=== PATIENT | female | born 1945 | race Caucasian/White ===

== ENCOUNTER → 2016-06-24 | Outpatient (CLI) | payer OTHER ==
[~2016-06-24] VITALS: Ht 154.9 cm; Wt 82.9 kg
[~2016-06-24] MED LIST: 5-HTP100 MG PO; ACETYL L-CARNI500 MG PO; ASPIR 8181 MG PO; ASPIRIN325 PO; CAL MAG ZINC +1 EAC1 PO; CHROMIUM400 MCG PO; GREEN TEA1 EACH PO; HYDROCODONE-AP1 EAC6 PO; LEVOTHYROXIN0.075 MG PO; LEVOTHYROXINE0.05 MG PO; MULTI VITAMIN1 EACH PO; NEURONTIN 300300 M1 PO; NEURONTIN600 MG PO; NEXIUM40 MG PO; NITROGLYCERIN0.4 MG SUBLING; OMEGA-3100 MG PO; OMEPRAZOLE 20 M20 M1 PO; OXYCODON-ACETA1 EAC1 PO; OXYCODONE-APAP1 EAC4 PO; PAMELOR25 MG PO; POT CITRATE-CI1 EACH PO; PRILOSEC20 MG PO; TRAMADOL 50 MG50 MG PO; ZYRTEC10 MG PO; [UNRECOGNIZED DRUG - MIXTURE]; [UNRECOGNIZED DRUG - OTHER]; [UNRECOGNIZED DRUG - OTHER] PO
--- NOTE | ~2016-06-24 | HPC ---
[address] [address] PAIN MANAGEMENT CONSULTATION Name: OLEKSANDR HERNANDEZ Room #: REG [facility].#: [id number] Admission: 06/24/16 Attend Phys: Umberto Lopez DO Discharge: Date of : 46 Report #: [id number] THIS REPORT FOR: //name// CC: Shae Lopez DATE OF SERVICE: 06/24/2016 REFERRING PHYSICIAN: Shae Ramsey MD. CHIEF COMPLAINT: Low back pain, left lower extremity pain and paresthesias. HISTORY OF PRESENT ILLNESS: As you know, the patient is a 71-year-old female, who returns today in followup visit, requesting to undergo an epidural injection under fluoroscopic guidance. She is placing pain score today at 4/10, states her pain reoccurred in middle of this last week and has progressively worsened. She indicates pain is exacerbated with walking, standing, lying down, and improves with medications and seated positions and repositioning. She is placing pain score at 4/10, states her pain is aching in sensation. She reports a 95% improvement in overall pain with previous epidural injection. She returns today in followup visit, hoping to undergo the next in the series to build on the success of previous intervention. ALLERGIES: PENICILLIN. CURRENT MEDICATIONS: Gabapentin, omeprazole, aspirin, levothyroxine, nitroglycerin p.r.n., cetirizine, potassium, multivitamin, calcium carbonate, chromium picolinate, omega 3 fish oil. SOCIAL HISTORY: The patient denies tobacco, alcohol, IV or illicit drug use. She is unaccompanied today. IMAGING: No new imaging available. PHYSICAL EXAMINATION: VITAL SIGNS: Blood pressure 129/75, pulse 83, respiratory rate 16, unlabored. The patient is 96% on room air. Height 5 feet 1 inch tall, weight 182.8 pounds, BMI calculated at 34.6. GENERAL: Well developed, well nourished, and well hydrated. Exogenously obese 71-year-old female appearing her stated age, placing current pain score at 4/10. HEENT: Normocephalic and atraumatic. Pupils are equal, round, and reactive to light. Extraocular muscles are intact. Speech is fluent. EXTREMITIES: Show no clubbing, no cyanosis, no edema. MUSCULOSKELETAL: Seated straight leg raising remains negative. Supine straight leg raising positive on the left. Pain is elicited with standing from a seated [address] [address] PAIN MANAGEMENT CONSULTATION Name: OLEKSANDR HERNANDEZ [facility] [id number] Admission: 06/24/16 Attend Phys: Umberto Lopez DO Discharge: Date of : 46 Report #: [id number] position and ambulating across the floor. Gait is slightly antalgic favoring the left lower extremity over right. ASSESSMENT: 1. Symptomatic lumbar radiculopathy. 2. Spinal stenosis of the lumbar spine. 3. Displacement of the lumbar intervertebral disk with radiculopathy. 4. Lumbosacral spondylosis with radiculopathy. 5. Lumbar degeneration. 6. Chronic intractable pain. PLAN: 1. The patient returns today in followup visit, requesting to undergo an epidural injection under fluoroscopic guidance. She has noted good analgesic benefit with previous injection providing 95% improvement in overall pain, lasting for nearly 2 months. We have consented the patient to undergo the procedure. Advised the risks and benefits, states she understood and wished to proceed. 2. No medication changes were made at today's visit. The patient will continue current medical therapy as previously prescribed. 3. We will see the patient back in followup visit on an as needed basis for possible repeat epidural injection and medication management if necessary. PROCEDURE NOTE: DESCRIPTION OF PROCEDURE: Lumbar epidural steroid injection under fluoroscopic guidance. This is the second procedure of the second series that the patient is undergoing. After obtaining written consent, the patient was taken back to the fluoroscopy suite, placed in a prone position with pillow under the abdomen to decrease lumbar lordosis. The skin overlying the lumbosacral area was then prepped and draped in aseptic fashion. The lumbar vertebral interspace was then identified by AP fluoroscopy. The skin and subcutaneous tissue overlying the target site of injection was anesthetized with 3 mL 1% lidocaine. A 20-guage 3-1/2 inch Tuohy needle was then advanced under fluoroscopic guidance towards the epidural space using a left paramedian approach. The epidural space was identified using loss of resistance to air technique. After negative aspiration for heme or cerebrospinal fluid, a total of 0.6 mL of Omnipaque was injected. A lumbar epidurogram was confirmed using both AP and lateral fluoroscopy. After negative aspiration for heme or cerebrospinal fluid, 5 mL of solution containing 2 mL 40 mg per mL, 80 mg total triamcinolone and 3 mL of lidocaine 1% was injected in increments. Contrast spread was noted in posterior [facility] [address] [place] [address] PAIN MANAGEMENT CONSULTATION Name: OLEKSANDR HERNANDEZ Room #: REG [facility]#: [id number] Admission: 06/24/16 Attend Phys: Umberto Lopez DO Discharge: Date of : 46 Report #: [id number] epidural space. The needle was then retracted approximately half way and needle tract flushed with 1 mL of 1% lidocaine. Needle was then removed. There were no apparent sensory or motor deficits in the lower extremity following the procedure. A sterile bandage was placed over the injection site. The heart rate, pulse, oximetry and blood pressure were continuously monitored after the procedure. There were no apparent complications. The patient tolerated the procedure well and was carefully escorted to the recovery room in stable condition. There were no apparent complications. After meeting discharge criteria, the patient was then discharged home. By: [id number] Umberto Lopez DO /nt
[2016-06-24 09:28] VITALS: BP 129/75
== END | disposition home or self-care (01) ==
LOC: PAIN 07:04
DX: M51.16 Intervertebral disc disorders with radiculopathy, lumbar region (principal); M47.27 Other spondylosis with radiculopathy, lumbosacral region; M48.06 Spinal stenosis, lumbar region; G89.29 Other chronic pain

== ENCOUNTER → 2016-10-14 | Outpatient (CLI) | payer OTHER ==
[~2016-10-14] VITALS: Ht 154.9 cm; Wt 84.0 kg
[~2016-10-14] MED LIST changes: +CYMBALTA30 MG PO
--- NOTE | ~2016-10-14 | HPC ---
[address] [address] PAIN MANAGEMENT CONSULTATION Name: OLEKSANDR HERNANDEZ Room #: REG [facility]#: [id number] Admission: 10/14/16 Attend Phys: Umberto Lopez DO Discharge: Date of : 46 Report #: [id number] THIS REPORT FOR: //name// CC: Shae Lopez DATE OF SERVICE: 10/14/2016 CHIEF COMPLAINT: Low back pain, bilateral lower extremity pain with paresthesias. HISTORY OF PRESENT ILLNESS: As you know, the patient is a 71-year-old female who returns today in followup visit reporting good efficacy with the gabapentin at 1200 mg 3 times a day, affecting low back and left lower extremity. Unfortunately, the patient continues to experience right lower extremity pain for which she places pain score today of a level of 1/10. States her pain is numbness, tingling, burning and electrical in sensation; exacerbated with walking, standing, lying down; improves with medications, seated position and repositioning. She returns today for adjustments in medication therapy, discuss interventional treatments. She does have plans to undergo EMG of the right lower extremity per the request of Dr. Ramsey towards the end of this month. She denies no changes in her medical history and has had no injury or trauma that may have led to progression of symptoms. ALLERGIES: PENICILLIN. CURRENT MEDICATIONS: Gabapentin 1200 mg 3 times a day, omeprazole 20 mg once a day, levothyroxine 75 mcg per day, nitroglycerin 0.4 mg p.r.n. chest pain, cetirizine 10 mg per day, potassium citrate 1 tab per day, multivitamin 1 tab per day, calcium carbonate 1 tab per day, chromium 400mg twice a day, omega-3 fish oil 1 tab per day. SOCIAL HISTORY: The patient denies tobacco, alcohol, IV or illicit drug use. She is unaccompanied today. IMAGING: No new imaging available. PHYSICAL EXAMINATION: VITAL SIGNS: Blood pressure 134/66, pulse is 72, respiratory rate 14, unlabored. The patient is 97% on room air. Height 5 feet 1 inches tall, weight 185.2 pounds, BMI calculated 35.0. GENERAL: Well developed, well nourished, well-hydrated exogenously obese 71-year-old female appearing stated age. She is placing current pain score about 1-2/10 right lower extremity mainly. HEENT: Normocephalic, atraumatic. Pupils equal, round, reactive to light. [facility] [address] [place] [address] PAIN MANAGEMENT CONSULTATION Name: OLEKSANDR HERNANDEZ Room #: [facility]#: [id number] Admission: 10/14/16 Attend Phys: Umberto Lopez DO Discharge: Date of : 46 Report #: [id number] Extraocular muscles are intact. Sclerae nonicteric, without injection. EXTREMITIES: Show no clubbing, no cyanosis, no edema. MUSCULOSKELETAL: Seated straight leg raising positive on the right, supine straight leg raising positive right. Ted test negative. Modified Gaenslen's positive for axial low back pain. Ankle clonus negative. Babinski is negative. Muscle bulk and tone equal and symmetrical in lower extremities, intact to light touch from L1 through S2 dermatomes. ASSESSMENT: 1. Symptomatic lumbar radiculopathy. 2. Progressively worsening spinal stenosis of lumbar spine. 3. Displacement of lumbar intervertebral disk with radiculopathy. 4. Lumbosacral spondylosis with radiculopathy. 5. Lumbar degeneration. 6. Chronic intractable pain. PLAN: 1. The patient returns today in followup visit indicating increasing pain in the right lower extremity. She has had good resolution of symptoms in the low back and left lower extremity with gabapentin 1200 mg 3 times a day, but is not noticing benefit on the right lower extremity side. We have discussed with the patient our concerns about progressively worsening spinal stenosis of the lumbar region. Most impressive changes on imaging study a year ago was at the L4-L5 level, the likely progression of this finding and potentially even some worsening neural foraminal stenosis leading to her right lower extremity symptoms. Symptoms appeared to be correlated to the L4 nerve root on the right side. We discussed options for treatment today. These would include physical therapy, stretching exercise, core strengthening. We discussed medication management, the addition of another neuropathic pain medication in conjunction with the Neurontin. We discussed epidural injections as a possible treatment option, spinal cord stimulator therapy and surgical options. The patient chose at this time to avoid surgical options including the spinal cord stimulator and the traditional surgical root. She also wishes no epidural injections. We have made the adjustments in medication today as followed. 2. The patient will start Cymbalta 30 mg dose. She will continue a 30 mg dose for 7 days, then increase to 60 mg dose. She was given #60 tablets of the 30 mg dose to escalate as necessary. She is noting good improvement in symptoms at 30 mg, remain at that dose if no improvement, then increase to 60 mg. She is to watch for side effects of somnolence, decreased mental acuity, disorientation, confusion, any side effects, contact our clinic. 3. The patient indicates that she is being planned. She is being sent for EMG of the right lower extremity. She questioned whether or not this would be beneficial to our service. I did advise this would be an interesting examination, but if we were not looking toward surgical options or change in her medical treatment, this would only be added information would not provide much in the way of changing our treatment plan. If the patient does wish to undergo [facility] [address] [place] [address] PAIN MANAGEMENT CONSULTATION Name: OLEKSANDR HERNANDEZ Room #: REG [facility]ing#: [id number] Admission: 10/14/16 Attend Phys: Umberto Lopez DO Discharge: Date of : 46 Report #: [id number] the EMG, she may do so. This will provide this information about which nerve root is actively being affected, but it does appear to be a L4 nerve root problem at this time. 4. We will defer to the primary team if they wish to have this EMG completed. If the patient is considering surgical options, EMG could be beneficial though an MRI would definitely be necessary. 5. The patient was provided a prescription of gabapentin 600 mg dose 2 tabs p.o. t.i.d., #180, 2 refills, 3 months' worth of medication. We will continue this neuropathic pain medication for her low back and left lower extremity symptoms as well as covering some of her right lower extremity symptoms. The addition of the Cymbalta should help with increased pain and potentially reduce her neuropathic symptoms. 6. We will see the patient back in followup visit in 3 months or earlier if necessary. She may call in for refills of duloxetine assuming it is effective. <ELECTRONICALLY SIGNED> By: Umberto Lopez DO 10/20/16 [id number] Umberto Lopez DO /nt
[2016-10-14 08:20] VITALS: BP 134/66
== END ==
LOC: PAIN 07:06
DX: M47.27 Other spondylosis with radiculopathy, lumbosacral region (principal)

== ENCOUNTER → 2016-12-30 | Outpatient (CLI) | payer OTHER ==
[~2016-12-30] VITALS: Ht 154.9 cm; Wt 81.6 kg
[~2016-12-30] MED LIST changes: +LIPITOR10 MG PO
--- NOTE | ~2016-12-30 | HPC ---
[facility] [address] [place] [address] PAIN MANAGEMENT CONSULTATION Name: OLEKSANDR HERNANDEZ Room #: REG [facility].#: [id number] Admission: 12/30/16 Attend Phys: Umberto Lopez DO Discharge: Date of : 46 Report #: [id number] THIS REPORT FOR: //name// CC: PARUL Lopez DATE OF SERVICE: 12/30/2016 CHIEF COMPLAINT: Low back pain, bilateral lower extremity pain and paresthesias, left greater than right. HISTORY OF PRESENT ILLNESS: As you know, the patient is a 71-year-old female who returns today in followup visit with recurrent low back pain, bilateral lower extremity pain with paresthesias, left greater than right. She is placing pain score 8/10. She states pain is exacerbated with bending, standing and lying on her right side; improves with medication, repositioning and epidural injections. She reports with the previous epidural injection excellent improvement in symptoms. She last underwent epidural injection on 06/24/2016. Injections with medication management appear to improve the patient's pain significantly. She returns today in followup visit requesting refill on medications, but also to undergo next in the series of epidural injections. She denies injury or trauma. ALLERGIES: PENICILLIN. CURRENT MEDICATIONS: Gabapentin, omeprazole, levothyroxine., nitroglycerin, cetirizine, potassium, multivitamin, calcium carbonate, chromium, omega-3 fish oil. SOCIAL HISTORY: The patient denies tobacco, alcohol, IV or illicit drug use. She is unaccompanied today. IMAGING: No new imaging available. PHYSICAL EXAMINATION: VITAL SIGNS: Blood pressure 133/75, pulse is 83, respiratory rate 16 and unlabored, the patient is 93% on room air. Height 5 feet 1 inch tall, weight 179.8 pounds, BMI calculated 34.0. GENERAL: Well-developed, well-nourished, well-hydrated 71-year-old female appearing stated age, placing current pain score at 8/10. HEENT: Normocephalic, atraumatic. Pupils equal, round, reactive to light. EXTREMITIES: Show no clubbing, no cyanosis, no edema. MUSCULOSKELETAL: Seated straight leg raising is negative. Supine straight leg raising positive on the left. YANELI test negative. Modified Gaenslen's positive for axial low back pain. Ankle clonus negative. Babinski is negative. [address] [address] PAIN MANAGEMENT CONSULTATION Name: OLEKSANDR HERNANDEZ [id number] Admission: 12/30/16 Attend Phys: Umberto Lopez DO Discharge: Date of : 46 Report #: [id number] Gait is antalgic favoring left lower extremity over right. ASSESSMENT: 1. Symptomatic lumbar radiculopathy. 2. Progressively worsening spinal stenosis of lumbar spine. 3. Displacement of lumbar intervertebral disk with radiculopathy. 4. Lumbosacral spondylosis with radiculopathy. 5. Lumbar degeneration. 6. Chronic intractable pain. PLAN: 1. The patient returns today in followup visit requesting to undergo epidural injection under fluoroscopic guidance to address the 8/10 pain. The patient underwent an injection in May and did very well with post-procedural pain, reduced to a level of 2-3/10, which was tolerable for the patient. The patient states in combination with medication therapy the treatment options are successful at alleviating symptoms. She returns today in followup visit for refill on medications and to undergo epidural injection. She has been advised risks and benefits of a repeat epidural injection, states she understood and wished to proceed. 2. The patient was provided a prescription of Cymbalta 60 mg dose 1 tab p.o. b.i.d., I have given the patient #60 with 2 refills, 3 months' worth of medication. 3. The patient was provided a prescription of gabapentin 300 mg dose 2 tabs p.o. t.i.d., #180, 2 refills, 3 months' worth of medication. The patient is denying any side effects to these two neuropathic pain medications. 4. The patient will return to our clinic on an as needed basis for next in a series of epidural injections. Otherwise, we will see her back in 3 months for medication management. PROCEDURE NOTE DESCRIPTION OF PROCEDURE: Lumbar epidural steroid injection under fluoroscopic guidance. After obtaining written consent, the patient was taken back to fluoroscopy suite, placed in prone position with pillow under abdomen to decrease lumbar lordosis. Skin overlying lumbosacral area was then prepped and draped in aseptic fashion. Lumbar intervertebral spaces were identified by AP fluoroscopy. Skin and subcutaneous tissue overlying target site of injection was anesthetized with 3 mL of 1% lidocaine. A 20-gauge 3-1/2 inch Tuohy needle advanced under fluoroscopic guidance towards the epidural space using a midline approach. Epidural space identified using loss of resistance to air technique. After negative aspiration for heme or cerebrospinal fluid, 1 mL of Omnipaque was injected. Lumbar epidurogram was [address] [address] PAIN MANAGEMENT CONSULTATION Name: OLEKSANDR HERNANDEZ Room #: REG [facility]#: [id number] Admission: 12/30/16 Attend Phys: Umberto Lopez DO Discharge: Date of : 46 Report #: [id number] confirmed using both AP and lateral fluoroscopy. After negative aspiration for heme or cerebrospinal fluid, 5 mL of a solution containing 2 mL 40 mg per mL, 80 mg total triamcinolone, 3 mL lidocaine 1% injected slowly. Needle retracted senior living, needle tract flushed 3 mL 1% lidocaine. Needle then removed. Sterile bandage placed over injection site. No new motor deficits present in lower extremity following the procedure. The patient tolerated the procedure well, carefully escorted to recovery room in stable condition. No apparent complications. After meeting discharge criteria, the patient discharged home. By: [id number] Umberto Lopez DO /nt
[2016-12-30 13:41] VITALS: BP 133/75
== END | disposition home or self-care (01) ==
LOC: PAIN 06:01
DX: M51.16 Intervertebral disc disorders with radiculopathy, lumbar region (principal); M48.061 Spinal stenosis, lumbar region without neurogenic claudication; M47.27 Other spondylosis with radiculopathy, lumbosacral region; G89.29 Other chronic pain; Z88.0 Allergy status to penicillin; Z79.899 Other long term (current) drug therapy

== ENCOUNTER → 2017-04-07 | Outpatient (CLI) | payer OTHER ==
[~2017-04-07] VITALS: Ht 154.9 cm; Wt 81.6 kg
[~2017-04-07] MED LIST changes: +ACYCLOVIR 200200 MG PO; +CHILDREN'S ASPI81 M1 PO; +CIPROFLOXACIN500 M1 PO; +CYMBALTA60 MG PO; +FLAGYL500 MG PO; +GRALISE300 MG PO; +GRALISE600 MG PO; +HYTRIN 2MG CAPSU2 M1 PO; +KLOR-CON-EF 2525 ME1 PO; +MEROPENEM 1 GM V1 GM IV; +MIRALAX17 GM PO; +PROBIOTIC1 EAC1 PO; +PROTONIX40 M1 PO; +SENNA-TIME S T1 EACH PO; +SYNTHROID75 MCG PO; +ZYRTEC10 M5 PO
--- NOTE | ~2017-04-07 | HPC ---
[address] [address] PAIN MANAGEMENT CONSULTATION Name: OLEKSANDR HERNANDEZ Room #: REG [facility].#: [id number] Admission: 04/07/17 Attend Phys: Umberto Lopez DO Discharge: Date of : 46 Report #: [id number] THIS REPORT FOR: //name// CC: Shae Lopez DATE OF SERVICE: 04/07/2017 REFERRING PHYSICIAN: Shae Ramsey M.D. CHIEF COMPLAINT: Low back pain, bilateral lower extremity pain and paresthesias. HISTORY OF PRESENT ILLNESS: As you know, the patient is a 72-year-old female who returns today in followup visit with recurrent low back pain, bilateral lower extremity pain with paresthesias, left greater than right. Today, the patient is placing pain score at around 6/10, states her pain is exacerbated with bending, sitting, lying on her right side, improves with medications, repositioning. She returns today requesting an epidural injection under fluoroscopic guidance for which she has received good benefit in the past. Most recent epidural injection provided 60% improvement in overall pain lasting until just recently where she had a slow and progressive return of symptoms. She denies new injury or new trauma that may have led to recurrence of symptoms. ALLERGIES: PENICILLIN. CURRENT MEDICATIONS: Lactobacillus, duloxetine, gabapentin, atorvastatin, omeprazole, levothyroxine, nitroglycerin p.r.n., omega-3 fish oil, chromium picolinate, calcium carbonate, multivitamin, potassium and sertraline. SOCIAL HISTORY: The patient denies tobacco, alcohol, IV or illicit drug use. She is unaccompanied today. IMAGING DATA: No new imaging available. PQRS: The patient does have some osteoarthritis. No rheumatoid arthritis. She is not a fall risk, has not had a fall in the past 3 months. She does not use any type of device for ambulation. She does not have the diagnosis of hypertension, not being treated for such. She is not on any blood thinners. Opioid risk low. Pain impact score 24/70. PHYSICAL EXAMINATION: VITAL SIGNS: Blood pressure 121/77, pulse 78 and respiratory rate 16 and unlabored. The patient is 100% on room air. Height 5 feet 1 inch tall, weight 180 pounds and BMI calculated 34. [address] [address] PAIN MANAGEMENT CONSULTATION Name: OLEKSANDR HERNANDEZ Room #: REG [facility]#: [id number] Admission: 04/07/17 Attend Phys: Umberto Lopez DO Discharge: Date of : 46 Report #: [id number] GENERAL: Well-developed, well-nourished, well-hydrated 72-year-old female, appears stated age, placing current pain score at 6/10. HEENT: Normocephalic and atraumatic. Pupils equal, round and reactive to light. Extraocular muscles are intact. EXTREMITIES: Show no clubbing, no cyanosis and no edema. MUSCULOSKELETAL: Seated straight leg raising negative. Supine straight leg raising positive on the left. Ted's test negative. Modified Gaenslen's positive for axial back pain. Ankle clonus negative. ASSESSMENT: 1. Symptomatic lumbar radiculopathy. 2. Progressively worsening spinal stenosis of the lumbar spine. 3. Displacement of lumbar intervertebral disk with radiculopathy. 4. Lumbosacral spondylosis with radiculopathy. 5. Lumbar degeneration. 6. Chronic intractable pain. PLAN: 1. The patient returns today in followup visit requesting to undergo next in the series of epidural injections. The patient was advised risks and benefits of this procedure, states understood and wished to proceed. 2. The patient was provided prescription of Cymbalta 60 mg dose 1 tab p.o. b.i.d., #60, two refills. 3. The patient was provided prescription of Neurontin 600 mg dose 2 tabs p.o. t.i.d., #180, two refills, 3 months' worth of medication. 4. We will see the patient back in followup visit on an as needed basis for next in a series of epidural injections. Otherwise, we will see her back in 3 months for medication therapy. PROCEDURE NOTE DESCRIPTION OF PROCEDURE: L5-S1 left paramedian epidural steroid injection under fluoroscopic guidance. After obtaining written consent, the patient was taken back to fluoroscopy suite, placed in prone position with pillow under abdomen to decrease lumbar lordosis. Skin overlying lumbosacral area then prepped and draped in aseptic fashion. Lumbar intervertebral spaces identified by AP fluoroscopy. Skin and subcutaneous tissue overlying target site of injection was anesthetized with 3 mL of 1% lidocaine. A 20-gauge 3-1/2 inch Tuohy needle advanced under fluoroscopic guidance towards the epidural space using left paramedian approach. Epidural space identified using loss of resistance to air technique. After negative aspiration for heme or cerebrospinal fluid, 1 mL of Omnipaque was injected. Lumbar epidurogram was confirmed using both AP and lateral fluoroscopy. After negative aspiration for [address] [address] PAIN MANAGEMENT CONSULTATION Name: OLEKSANDR HERNANDEZ Room #: REG [facility]#: [id number] Admission: 04/07/17 Attend Phys: Umberto Lopez DO Discharge: Date of : 46 Report #: [id number] heme or cerebrospinal fluid, 5 mL of a solution containing 2 mL 40 mg per mL, 80 mg total triamcinolone, 3 mL lidocaine 1% injected slowly. Needle retracted fpc, flushed with 1 mL of 1% lidocaine and removed. Sterile bandage placed over injection site. No new motor deficits present in lower extremity following procedure. The patient tolerated procedure well, carefully escorted to the recovery room in stable condition. No apparent complications. After meeting discharge criteria, the patient discharged home. <ELECTRONICALLY SIGNED> By: Umberto Lopez DO 04/22/17 [id number] Umberto Lopez DO /nt
[2017-04-07 11:37] VITALS: BP 121/77
== END ==
LOC: PAIN 06:48
DX: M51.16 Intervertebral disc disorders with radiculopathy, lumbar region (principal); M48.061 Spinal stenosis, lumbar region without neurogenic claudication; M47.27 Other spondylosis with radiculopathy, lumbosacral region; G89.29 Other chronic pain

== ENCOUNTER 2017-05-20 11:31 | Inpatient (IN) | payer OTHER ==
[2017-05-20] VITALS (8 sets, daily range): BP systolic 96–133; BP diastolic 51–81
[~2017-05-20] VITALS: Ht 170.2 cm; Wt 81.6 kg
--- NOTE | ~2017-05-20 | EKG ---
[place] [address] [facility] [place] [address] ELECTROCARDIOGRAM REPORT Name: OLEKSANDR HERNANDEZ Room #: 210-P ADM IN M.R.#: [id number] Admission: 05/20/17 Attend Phys: Mohamud Tucker Discharge: Date of : 47 Report #: [id number] THIS REPORT FOR: //name// [facility] ED Test Date: 2017-05-20 Test Time: 11:38:46 Pat Name: OLEKSANDR HERNANDEZ Department: Room: 210 Gender: F Client Support Administrator: SYED : 1945 Requested By: Laith Rosenberg Order Number: [id number] MD: Shane Ervin Measurements Intervals [place] Rate: 73 P: 39 MO: 163 QRS: -70 QRSD: 138 T: -20 QT: 430 QTc: 474 Interpretive Statements Sinus rhythm RBBB and LAFB Compared to ECG 05/12/2015 17:44:40 No significant change Electronically Signed On 05-20-2017 17:17:23 CDT by Shane Ervin [email or web address] <ELECTRONICALLY SIGNED> By: Shane Ervin MD, [facility] 05/20/17 1717 1138 1138 Shane Ervin MD, [facility] /EPI
[~2017-05-20 11:31] MED LIST changes: -ACYCLOVIR 200200 MG PO; -CHILDREN'S ASPI81 M1 PO; -CIPROFLOXACIN500 M1 PO; -FLAGYL500 MG PO; -GRALISE300 MG PO; -GRALISE600 MG PO; -HYTRIN 2MG CAPSU2 M1 PO; -KLOR-CON-EF 2525 ME1 PO; -MEROPENEM 1 GM V1 GM IV; -MIRALAX17 GM PO; -PROTONIX40 M1 PO; -SENNA-TIME S T1 EACH PO; -SYNTHROID75 MCG PO; -ZYRTEC10 M5 PO
[2017-05-20 12:31] LABS: ABSOLUTE NEUTROPHILS 4.2 thou/uL (1.4-8.2); BASOPHILS 0.9 % (0.0-2.0); EOSINOPHILS 1.5 % (0.0-3.0); HEMATOCRIT 41.7 % (37.0-47.0); HEMOGLOBIN 14.1 gm/dL (12.0-15.0); LYMPHOCYTES 26.4 % (24.0-44.0); MCHC 33.9 g/dL (28.0-37.0); MCV 94.2 fL (80.0-100.0); MONOCYTES 9.7 % (1.0-8.0); PLATELET COUNT 287 thou/uL (150-400); POLYS 61.5 % (36.0-66.0); RBC 4.42 mil/uL (4.20-5.00); RDW 13.3 % (10.5-14.5); WBC 6.7 thou/uL (4.0-11.0)
[2017-05-20 12:41] LABS: ANION GAP 8 mmol/L (7-16); BUN 23 mg/dL (7-18); CALCIUM 9.8 mg/dL (8.5-10.1); CHLORIDE 104 mmol/L (98-107); CO2 27 mmol/L (21-32); CREATININE 0.9 mg/dL (0.6-1.0); GLUCOSE 124 mg/dL (74-106); POTASSIUM 4.4 mmol/L (3.5-5.1); SODIUM 139 mmol/L (136-145)
[2017-05-20 12:43] LABS: INR 1.1; PROTIME 10.9 Seconds (9.3-11.4)
[2017-05-20 12:46] LABS: ALBUMIN 3.4 g/dL (3.4-5.0); SGOT 26 U/L (15-37); SGPT 39 U/L (30-65); TOTAL BILIRUBIN 0.4 mg/dL (<0.1-1.0); TOTAL PROTEIN 7.1 g/dL (6.4-8.2); TROPONIN-I < 0.04 ng/mL (<0.06)
[2017-05-20 13:37] LABS: CHOLESTEROL 163 mg/dL (<200); HDL CHOLESTEROL 55 mg/dL (>40); LDL CHOLESTEROL 90 mg/dL (<100); TRIGLYCERIDE 91 mg/dL (<150); VLDL 18 mg/dL (<40)
[2017-05-20] MEDS ORDERED: PROTONIX40 M1 PO (13:56)
[2017-05-21 04:02] LABS: ANION GAP 7 mmol/L (7-16); BUN 18 mg/dL (7-18); CALCIUM 9.1 mg/dL (8.5-10.1); CHLORIDE 109 mmol/L (98-107); CO2 29 mmol/L (21-32); CREATININE 0.8 mg/dL (0.6-1.0); GLUCOSE 114 mg/dL (74-106); POTASSIUM 4.4 mmol/L (3.5-5.1); SODIUM 145 mmol/L (136-145)
[2017-05-21 04:11] LABS: ALBUMIN 2.8 g/dL (3.4-5.0); TROPONIN-I < 0.04 ng/mL (<0.06)
[2017-05-21 04:54] VITALS: BP 136/76
[2017-05-21 07:15] VITALS: BP 135/77
[2017-05-21 11:10] VITALS: BP 121/80
[2017-05-21 12:09] VITALS: BP 122/93
[2017-05-21 13:01] VITALS: BP 122/93
[2017-05-24] MEDS ORDERED: CHILDREN'S ASPI81 M1 PO (00:11)
[2017-07-07] MEDS ORDERED: ACYCLOVIR 200200 MG PO (08:37)
[2017-07-07] MEDS ORDERED: CYMBALTA60 MG PO (09:12)
[2017-07-07] MEDS ORDERED: NEURONTIN600 MG PO (09:12)
[2017-07-14] MEDS ORDERED: GRALISE600 MG PO (11:15)
[2017-07-14] MEDS ORDERED: GRALISE300 MG PO (11:15)
[2017-08-11] MEDS ORDERED: CYMBALTA60 MG PO (09:14)
[2017-08-11] MEDS ORDERED: KLOR-CON-EF 2525 ME1 PO (09:17)
[2017-08-11] MEDS ORDERED: SYNTHROID75 MCG PO (09:20)
[2017-08-11] MEDS ORDERED: NEURONTIN600 MG PO (09:22)
[2017-08-11] MEDS ORDERED: ZYRTEC10 M5 PO (09:23)
[2017-09-08] MEDS ORDERED: HYTRIN 2MG CAPSU2 M1 PO (14:05)
[2017-09-08] MEDS ORDERED: NEURONTIN600 MG PO (15:38)
[2017-09-08] MEDS ORDERED: CYMBALTA60 MG PO (15:38)
== END 2017-05-21 14:56 | disposition home or self-care (01) | DRG 313 ==
LOC: ER 11:31 → EROBS 13:21 → 2N 13:21
PROVIDERS: Hospitalist; Physician Assistant
DX: R07.9 Chest pain, unspecified (principal); E78.5 Hyperlipidemia, unspecified; R61 Generalized hyperhidrosis; E03.9 Hypothyroidism, unspecified; K21.9 Gastro-esophageal reflux disease without esophagitis; F41.9 Anxiety disorder, unspecified; F32.9 Major depressive disorder, single episode, unspecified; Z96.659 Presence of unspecified artificial knee joint; G62.9 Polyneuropathy, unspecified; M48.00 Spinal stenosis, site unspecified; Z98.42 Cataract extraction status, left eye; Z98.41 Cataract extraction status, right eye; Z79.899 Other long term (current) drug therapy; Z88.0 Allergy status to penicillin
CPT/HCPCS: 10081

== ENCOUNTER 2017-05-29 15:59 | Inpatient (IN) | payer OTHER ==
[~2017-05-29] VITALS: Ht 154.9 cm; Wt 74.4 kg
--- NOTE | ~2017-05-29 | H ---
[facility] [place] [address] HISTORY AND PHYSICAL Name: OLEKSANDR HERNANDEZ Room #: 510-P [facility] IN M.R.#: [id number] Admission: 05/29/17 Attend Phys: Rajan Duval MD Discharge: 06/04/17 Date of : 47 Report #: [id number] THIS REPORT FOR: //name// CC: Shae Duval DATE OF SERVICE: 05/29/2017 HISTORY AND PHYSICAL/POST-ADMISSION PHYSICIAN EVALUATION HISTORY OF PRESENT ILLNESS: The patient is a 72-year-old white female, who was originally admitted to [facility] with right upper and right lower quadrant abdominal pain. She was diagnosed with acute appendicitis with perforation and abscess. Followup CT scan showed enlargement of the abscess and she underwent interventional radiology drainage with the drain left in place. She was noted to have a complication of mild sepsis along with the perforation and abscess. She has been followed closely by Infectious Disease and Surgery and has been continuing on the IV antibiotics. She is an obese, white female and she is having a lot of pain with movement. She has had significant functional mobility and ADL deficits and we are now admitting her for acute in-hospital inpatient rehabilitation. PAST MEDICAL HISTORY: Includes arthroscopic meniscus of left knee, spinal stenosis with steroid injections by pain management, hypothyroidism, hyperlipidemia, GERD, anxiety, depression, and left total knee replacement in 2016. ALLERGIES: PENICILLIN. HABITS: No history of tobacco or alcohol abuse. FAMILY HISTORY: Noncontributory. SOCIAL HISTORY: She lives in a house alone. This is a duplex. There are 4 steps in. She does not utilize gait aids. She has a friend that is supportive. REVIEW OF SYSTEMS: She does have pain with movement. No chest pain or shortness of breath. No focal extremity pain complaints. Complains of being weak with significant pain with limited movement and overall decreased function. PHYSICAL EXAMINATION: GENERAL: A 72-year-old obese white female. She was seen earlier, was sleepy but did respond. VITAL SIGNS: Temperature 98.3, pulse 80, respirations 18, blood pressure 99/60. HEENT: Appeared to be benign. CHEST: Sounded clear to auscultation. [address] [address] HISTORY AND PHYSICAL Name: OLEKSANDR HERNANDEZ Room #: 510-P [facility] IN [facility].#: [id number] Admission: 05/29/17 Attend Phys: Rajan Duval MD Discharge: 06/04/17 Date of : 47 Report #: [id number] CARDIAC: Regular rate and rhythm. ABDOMEN: Fairly large, somewhat pendulous abdomen with the drain in the right abdomen. EXTREMITIES: Functional range of motion of both upper extremities. Strength is grade 4-/5. DTRs are trace to 1. Lower extremities, no focal calf swelling, functional range of motion with strength grade 4 to 4-/5, DTRs are trace to 1. She has been needing mod assist with [id number]. ASSESSMENT: A 72-year-old white female with the following problem list: 1. Medical complexity with generalized debilitation. 2. Acute appendicitis with perforated abscess and enlargement, status post interventional radiology drain in place. 3. Mild sepsis secondary to the above. 4. Functional mobility and ADL deficits. 5. Exogenous obesity. 6. Spinal stenosis with pain management involvement with past history of steroid injections. 7. Left total knee replacement. 8. Hyperlipidemia. 9. Anxiety and depression. 10. Gastroesophageal reflux disease. 11. History of left knee meniscal surgery. PLAN: The patient is admitted for acute in-hospital inpatient rehabilitation. From a post-admission physician evaluation perspective, there are no relevant changes since the preadmission screening. Please see the above review of prior and current medical and functional conditions and comorbidities. Please see the patient's previous and current functional status. As far as risk of complication, she has the above noted medical comorbidities. Initial plan of care involves the interdisciplinary acute inpatient rehabilitation program with the goal of maximizing her functional independence, so she can return back to the home setting. Measurable functional goals would be for her to become modified independent with transfers, mobility, and ADLs and with decreased pain, so she can return back home. Prognosis is reasonably good with estimated length of stay probably fairly short around 5-7 up to 10 days if warranted. Potential barriers would include medical comorbidities and decreased functional status. The goal would be for her to be modified independent with mobility and ADLs at least at the walker level to try to get her back home. The patient's diagnosis is appropriate for an acute in-hospital inpatient rehabilitation stay. She does meet medical necessity and we will have multiple consultants continue to follow. [address] [address] HISTORY AND PHYSICAL Name: OLEKSANDR HERNANDEZ Room #: 510-P DIS IN M.R.#: [id number] Admission: 05/29/17 Attend Phys: Rajan Duval MD Discharge: 06/04/17 Date of : 47 Report #: [id number] She has a drain in place and is on IV antibiotic. She has the tolerance for therapies and has appropriate discharge goals back to the home setting. <ELECTRONICALLY SIGNED> By: Rajan Duval MD 06/05/17 1408 0822 1010 Rajan Duval MD /nt
--- NOTE | ~2017-05-29 | HC ---
[facility] [address] CONSULTATION Name: OLEKSANDR HERNANDEZ Room #: 510-P [facility] IN .R.#: [id number] Admission: 05/29/17 Attend Phys: Rajan Duval MD Discharge: 06/04/17 Date of : 47 Report #: [id number] THIS REPORT FOR: //name// CC: Shae Duval DATE OF SERVICE: 05/29/2017 HISTORY OF PRESENT ILLNESS: The patient is a 72-year-old white female who was admitted with right upper and right lower quadrant pain. She was diagnosed with an acute appendicitis with perforation and abscess. Followup CT showed enlargement of the abscess and she underwent interventional radiology abscess drainage with a drain in place. She has been closely followed by Infectious Disease and Surgery. Continuing on IV antibiotics. She is an obese white female and she is having a lot of pain with movement. She was noted to have a complication of some mild sepsis along with the perforation and abscess. She has functional mobility and ADL deficits and we are seeing her in rehabilitation medicine consultation. PAST MEDICAL HISTORY: Includes arthroscopic meniscus left knee, spinal stenosis with steroid injections by pain management, hypothyroidism, hyperlipidemia, GERD, anxiety, depression, left total knee replacement in 2016. ALLERGIES: PENICILLIN. HABITS: No history of tobacco or alcohol abuse. FAMILY HISTORY: Noncontributory. SOCIAL HISTORY: She lives in a house alone. This is a duplex. There are 4 steps in. She did not utilize gait aids. She does have a friend that is supportive. REVIEW OF SYSTEMS: Has a lot of pain with any movement. No chest pain or shortness of breath. Denies focal extremity pain complaints. Complains of weakness and difficulty with movement. PHYSICAL EXAMINATION: GENERAL: This is a 72-year-old obese white female, in no obvious distress. She has discomfort with attempted movement. VITAL SIGNS: Last recorded temperature 99.2, pulse 94, respirations 16, blood pressure 107/58. She is oriented. HEENT: Appeared to be benign. NEUROLOGIC: Cranial nerves are grossly intact. Facies are symmetric. ABDOMEN: She has a fairly large somewhat pendulous abdomen with the drain in the right abdomen. [facility] [address] [place] [address] CONSULTATION Name: OLEKSANDR HERNANDEZ Room #: 510-P [facility] IN M.R.#: [id number] Admission: 05/29/17 Attend Phys: Rjaan Duval MD Discharge: 06/04/17 Date of : 47 Report #: [id number] EXTREMITIES: Functional range of motion of both upper extremities. Strength is grade 4-/5. DTRs are trace to 1. Lower extremities, no focal calf swelling, functional range of motion with strength of grade 4 to 4-/5. DTRs are trace to 1. She needs mod assist with supine to sit. Gait was 25 feet min assist. She has 10/10 pain with attempted bed mobility, supine to sit. In occupational therapy, she was max assist for toilet transfers. ASSESSMENT: A 72-year-old white female with the following problems: 1. Medical complexity with generalized debilitation. 2. Acute appendicitis with perforated abscess and enlargement, status post Interventional Radiology drain in place. 3. Mild sepsis secondary to the above. 4. Functional mobility and activities of daily living deficits. 5. Exogenous obesity. 6. Spinal stenosis with pain management involvement and past history of steroid injections. 7. Left total knee replacement. 8. Hyperlipidemia. 9. Anxiety, depression. 10. Gastroesophageal reflux disease. 11. History of left knee meniscal surgery. PLAN: The patient is a candidate for a short acute in-hospital inpatient rehabilitation stay to maximize her functional independence with transfers, mobility, and ADLs. We will be following up with you and we will be glad to assist regarding her rehab therapy transfer if patient is amenable and arrangements made. Thank you for asking us to assist in this patient's care. <ELECTRONICALLY SIGNED> By: Rajan Duval MD 06/05/17 1408 1538 0358 Rajan Duval MD /[facility]
--- NOTE | ~2017-05-29 | HC ---
[facility] [address] CONSULTATION Name: OLEKSANDR HERNANDEZ Room #: 510-P [facility] IN .R.#: [id number] Admission: 05/29/17 Attend Phys: Rajan Duavl MD Discharge: 06/04/17 Date of : 47 Report #: [id number] THIS REPORT FOR: //name// CC: Shae Roxy Duval DATE OF SERVICE: 05/31/2017 NEUROBEHAVIORAL STATUS EXAMINATION ATTENDING PHYSICIAN: Rajan Duval MD BOARD MIXER TENDER: Clark Winn, PhD CLINICAL PRESENTATION: The patient is a 72-year-old female admitted to the [facility] for a comprehensive inpatient rehabilitation program to improve functional mobility, activities of daily living and self-care and mental status. She was initially admitted through the Emergency Room with right upper and lower quadrant abdominal pain. The patient was diagnosed with acute appendicitis with perforation and abscess. She carries a past medical history of arthroscopic meniscus of the left knee, spinal stenosis with steroid injections, hypothyroidism, hyperlipidemia, GERD, anxiety, depression, and a left total knee replacement. A complete description of her medical condition and history along with medications can be found in her medical record. Neuropsychological consultation was requested to provide assistance in the assessment of cognitive and emotional status and to provide recommendations and services. Prior to this most recent medical event, she was living independently in her own home. 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 She was independent with instrumental activities of daily living. 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 The patient has no children and is not . She was an only child from family of origin. Her social support network is very good. TECHNIQUES UTILIZED: Clinical interview, review of medical records, staff consultation and behavioral observation, mini mental status exam 2 standard version, clock drawing and verbal fluency assessment (letter and category), then brief abstract reasoning test. EXAMINATION FINDINGS: The patient was alert and cooperative with the assessment. She accurately described events surrounding her admission. There is no evidence of aphasia. Her thoughts are logical and goal oriented. There is no evidence of thought disorder. She does not report auditory or visual hallucinations. Her primary complaints include decreased appetite, tiredness [facility] [address] [place] [address] CONSULTATION Name: OLEKSANDR HERNANDEZ Room #: 510-P [facility] IN .R.#: [id number] Admission: 05/29/17 Attend Phys: Rajan Duval MD Discharge: 06/04/17 Date of : 47 Report #: [id number] and fatigue, difficulty with memory and word finding and subjective anxiety and depression. There is no history of alcohol or drug abuse. The patient had a slight difficulty with memory and word finding prior to this most recent medical event. Her performance on the MMSE 2 brief version was in the low average range with a raw score of 14 of 16 and a T score of 41, which is at the 18th percentile. She was 3/3 for initial registration, 5/5 for orientation to time and place. The patient was 1/3 for immediate recall of 3 items after a brief time delay and distraction. Her performance declined on the MMSE 2 standard version to a raw score of 25 of 30, which is a T score at 38, percentile rank of 12. She was at 2/5 for serial sevens, 2/2 for naming, 1/1 for repetition. Auditory comprehension and reading within normal limits. She was able to copy a simple geometric design and write a sentence. Clock drawing was within normal limits. Verbal fluency assessment suggests mild to moderate deficits. Letter fluency was in the low average range with a T score of 42, percentile rank of 21. Borderline functioning and category fluency with a T score at 31, percentile rank of 3. Overall, verbal fluency was a T score at 35 and percentile rank of 7. The patient is presenting with mild deficits in cognition. Immediate recall and verbal fluency deficits are noted. She reports having mild difficulty with verbal expression prior to her hospitalization. Her abstract reasoning test was within normal limits with a raw score of 8/8. This type of presentation suggests a mild deficit in neurocognitive functioning. DIAGNOSTIC IMPRESSIONS: Mild neurocognitive disorder, unspecified, without behavior disorder. Unspecified anxiety disorder with depression. RECOMMENDATIONS: Continue treatment program for depression that includes the use of antidepressant medication. The patient would benefit by more thorough neuropsych assessment upon discharge to clarify cognitive status. Initial assistance at home with managing medications would be of benefit. She has a very good social support system and having a peer stay with her just initially to help her get settled into her home and daily routine. A delay in return to driving is suggested. Continue treatment for anxiety/depression with the use of an antidepressant. Psychological counseling would also be of benefit to assist overall adjustment. [facility] [address] [place] [address] CONSULTATION Name: OLEKSANDR HERNANDEZ Room #: 510-P [facility] IN M.R.#: [id number] Admission: 05/29/17 Attend Phys: Rajan Duavl MD Discharge: 06/04/17 Date of : 47 Report #: [id number] Thank you very much for allowing me to provide the consultation on this patient. <ELECTRONICALLY SIGNED> By: Clark Winn, PhD 06/07/17 1632 1446 2143 Clark Winn, PhD /nt
--- NOTE | ~2017-05-29 | PLAN ---
[facility] [place] [address] REHAB UNIT PLAN OF CARE Name: OLEKSANDR HERNANDEZ Room #: 510-P [facility] IN M.R.#: [id number] Admission: 05/29/17 Attend Phys: Rajan Duval MD Discharge: 06/04/17 Date of : 47 Report #: [id number] THIS REPORT FOR: //name// CC: Shae Duval DATE OF SERVICE: 06/01/2017 PROGRESS NOTE/OVERALL PLAN OF CARE SUBJECTIVE: The patient is seen back today in followup. She is in no distress. Last recorded temperature 97.4, pulse 62, respirations 18, blood pressure 108/64. The patient is alert. HEENT appeared to be benign. Abdominal drain is in place. No calf swelling. She is working in transfers and functional mobility and note she is starting to do better. She was min assist with sit to stand. Mod assist 160 feet without a gait aid. In occupational therapy, upper body dressing, supervision with lower body dressing, min assist. ASSESSMENT: 1. Medical complexity with generalized debilitation. 2. Acute appendicitis with perforated abscess and enlargement, status post Interventional Radiology drain in place. 3. Mild sepsis secondary to the above. 4. Functional mobility and ADL deficits. 5. Exogenous obesity. 6. Spinal stenosis with pain management involvement with past history of steroid injection. 7. Left total knee replacement. 8. Hyperlipidemia. 9. Anxiety and depression. 10. Gastroesophageal reflux disease. 11. History of left knee meniscal surgery. PLAN: The overall plan of care is based on the preadmission screen, post-admission physician evaluation and information garnered from therapy assessments. 1. Estimated length of stay should be fairly short, probably later this week. 2. Medical prognosis is reasonably good. 3. Anticipated interventions includes the interdisciplinary acute inpatient rehabilitation program with PT and OT, rehab nursing assisting regarding medication management, skin care prophylaxis, bowel and bladder issues and nursing education. Case management is involved as well as the interdisciplinary team. 4. Anticipated functional outcomes would be for the patient to become modified independent with transfers, mobility and ADLs, so that she can hopefully return back to her prior living situation. [facility] [address] [place] [address] REHAB UNIT PLAN OF CARE Name: OLEKSANDR HERNANDEZ Room #: 510-P [facility] IN .R.#: [id number] Admission: 05/29/17 Attend Phys: Rajan Duval MD Discharge: 06/04/17 Date of : 47 Report #: [id number] 5. Discharge destination would be back home where she lives in a house alone. 6. Expected therapy by discipline includes PT and OT, 1-1/2 hours per day each five days a week throughout the duration of the acute inpatient rehabilitation stay. <ELECTRONICALLY SIGNED> By: Rajan Duval MD 06/05/17 1408 0814 0921 Rajan Duval MD /PMT
[~2017-05-29 15:59] MED LIST changes: +CHILDREN'S ASPI81 M1 PO; +PROTONIX40 M1 PO
[2017-05-29] MEDS ORDERED: MEROPENEM 1 GM V1 GM IV (16:00)
[2017-05-29 18:30] VITALS: BP 96/55
[2017-05-30 04:25] VITALS: BP 116/63
[2017-05-30 06:23] LABS: HEMATOCRIT 34.4 % (37.0-47.0); HEMOGLOBIN 11.9 gm/dL (12.0-15.0); MCHC 34.6 g/dL (28.0-37.0); MCV 92.3 fL (80.0-100.0); RBC 3.73 mil/uL (4.20-5.00); RDW 13.1 % (10.5-14.5); WBC 11.9 thou/uL (4.0-11.0)
[2017-05-30 06:33] LABS: CALCIUM 8.4 mg/dL (8.5-10.1); CREATININE 0.6 mg/dL (0.6-1.0); POTASSIUM 3.3 mmol/L (3.5-5.1)
[2017-05-30 07:38] VITALS: BP 99/60
[2017-05-30 20:00] VITALS: BP 131/65
[2017-05-31 07:44] VITALS: BP 104/61
[2017-05-31 19:51] VITALS: BP 108/64
[2017-06-01 06:38] LABS: ABSOLUTE NEUTROPHILS 4.2 thou/uL (1.4-8.2); BASOPHILS 0.8 % (0.0-2.0); EOSINOPHILS 4.6 % (0.0-3.0); HEMATOCRIT 33.6 % (37.0-47.0); HEMOGLOBIN 11.4 gm/dL (12.0-15.0); LYMPHOCYTES 20.1 % (24.0-44.0); MCH 31.4 pg (26.0-34.0); MCHC 33.9 g/dL (28.0-37.0); MCV 92.5 fL (80.0-100.0); MONOCYTES 11.4 % (1.0-8.0); PLATELET COUNT 417 thou/uL (150-400); POLYS 63.1 % (36.0-66.0); RBC 3.63 mil/uL (4.20-5.00); RDW 13.6 % (10.5-14.5); WBC 6.6 thou/uL (4.0-11.0)
[2017-06-01 06:54] LABS: CALCIUM 8.6 mg/dL (8.5-10.1); CREATININE 0.7 mg/dL (0.6-1.0); MAGNESIUM 2.1 mg/dL (1.8-2.4); PHOSPHORUS 2.9 mg/dL (2.5-4.9); POTASSIUM 3.5 mmol/L (3.5-5.1)
[2017-06-01 07:30] VITALS: BP 109/67
[2017-06-01 19:50] VITALS: BP 127/59
[2017-06-02 08:55] VITALS: BP 95/63
[2017-06-02 19:55] VITALS: BP 115/64
[2017-06-03 05:16] LABS: CREATININE 0.6 mg/dL (0.6-1.0); MAGNESIUM 2.3 mg/dL (1.8-2.4); POTASSIUM 3.7 mmol/L (3.5-5.1)
[2017-06-03 05:17] LABS: ABSOLUTE NEUTROPHILS 4.3 thou/uL (1.4-8.2); BASOPHILS 0.9 % (0.0-2.0); EOSINOPHILS 3.8 % (0.0-3.0); HEMATOCRIT 35.3 % (37.0-47.0); HEMOGLOBIN 12.1 gm/dL (12.0-15.0); LYMPHOCYTES 20.2 % (24.0-44.0); MCH 31.6 pg (26.0-34.0); MCHC 34.3 g/dL (28.0-37.0); MCV 92.1 fL (80.0-100.0); POLYS 65.1 % (36.0-66.0); RBC 3.83 mil/uL (4.20-5.00); RDW 13.2 % (10.5-14.5); WBC 6.6 thou/uL (4.0-11.0)
[2017-06-03 05:21] LABS: PLATELET COUNT 542 thou/uL (150-400)
[2017-06-03 08:05] VITALS: BP 121/72
[2017-06-03 19:41] VITALS: BP 117/64
[2017-06-04 07:15] VITALS: BP 124/74
[2017-06-04] MEDS ORDERED: MIRALAX17 GM PO (09:38)
[2017-06-04] MEDS ORDERED: FLAGYL500 MG PO (09:38)
[2017-06-04] MEDS ORDERED: SENNA-TIME S T1 EACH PO (09:38)
[2017-06-04] MEDS ORDERED: CIPROFLOXACIN500 M1 PO (09:38)
[2017-06-04 10:20] VITALS: BP 124/74
== END 2017-06-04 13:12 | disposition home health service (06) | DRG 947 ==
LOC: ENTRNSPT 06-04 13:03 → EDTRNSPTSTS 06-04 13:07
PROVIDERS: Hospitalist; Physical Medicine & Rehabilitation; Surgery
PROC: 0WPFX0Z Removal of Drainage Device from Abdominal Wall, External Approach (ICD-10-PCS; principal; 2017-06-03)
DX: R53.81 Other malaise (principal); K35.2 Acute appendicitis with generalized peritonitis; A41.9 Sepsis, unspecified organism; Z68.33 Body mass index [BMI] 33.0-33.9, adult; M48.00 Spinal stenosis, site unspecified; E03.9 Hypothyroidism, unspecified; E78.5 Hyperlipidemia, unspecified; K21.9 Gastro-esophageal reflux disease without esophagitis; Z60.2 Problems related to living alone; E66.09 Other obesity due to excess calories; G31.84 Mild cognitive impairment of uncertain or unknown etiology; F41.8 Other specified anxiety disorders; K59.00 Constipation, unspecified; Z96.652 Presence of left artificial knee joint; Z88.0 Allergy status to penicillin; Z79.82 Long term (current) use of aspirin; Z79.899 Other long term (current) drug therapy
CPT/HCPCS: 10112

== ENCOUNTER → 2017-06-29 | Outpatient (CLI) | payer OTHER ==
[~2017-06-29] MED LIST changes: +CIPROFLOXACIN500 M1 PO; +FLAGYL500 MG PO; +MEROPENEM 1 GM V1 GM IV; +MIRALAX17 GM PO; +SENNA-TIME S T1 EACH PO
== END ==
LOC: LAB 06:17
DX: N28.1 Cyst of kidney, acquired (principal); M47.896 Other spondylosis, lumbar region; M48.061 Spinal stenosis, lumbar region without neurogenic claudication; K37 Unspecified appendicitis

== ENCOUNTER → 2017-07-07 | Outpatient (CLI) | payer OTHER ==
[~2017-07-07] VITALS: Ht 154.9 cm; Wt 78.5 kg
[~2017-07-07] MED LIST changes: +ACYCLOVIR 200200 MG PO
--- NOTE | ~2017-07-07 | HPC ---
[facility] [place] [address] PAIN MANAGEMENT CONSULTATION Name: OLEKSANDR HERNANDEZ Room #: REG [facility].#: [id number] Admission: 07/07/17 Attend Phys: Umberto Lopez DO Discharge: Date of : 47 Report #: [id number] THIS REPORT FOR: //name// CC: Shae Lopez DATE OF SERVICE: 07/07/2017 REFERRING PHYSICIAN: Shae Ramsey MD CHIEF COMPLAINT: Low back pain; bilateral lower extremity pain and paresthesias, right greater than left. HISTORY OF PRESENT ILLNESS: As you know, the patient is a 72-year-old female who returns today in followup visit with continued low back pain, bilateral lower extremity pain with right greater than left. She indicates pain is chronic in nature, constant, aching, numbness and tingling. She states her pain is exacerbated with bending, sitting, lying on her right side; improves with medications, repositioning and previous epidural injections. She is placing pain score today 3/10. She returns today in followup visit to discuss options for treatment. She states that she is receiving benefit with the use of her Cymbalta and her Neurontin, but is having difficulty escalating her dose beyond 600 mg 3 times a day. She is experiencing some somnolence, decrease in mental acuity, disorientation and confusion and wishes to discuss possible changes in medication management. She does find benefit with the gabapentin to a great degree, but due to the side effects, she is having difficulty maintaining daily activities. She returns to discuss options for treatment. ALLERGIES: PENICILLIN. CURRENT MEDICATIONS: Acyclovir 200 mg 5 times a day, ciprofloxacin 500 mg once a day, aspirin 81 mg per day, pantoprazole 40 mg per day, gabapentin 600 mg 3 times a day, duloxetine 60 mg once a day, lactobacillus 1 tab per day, atorvastatin 10 mg per day, levothyroxine 75 mcg per day, nitroglycerin 0.4 mg p.r.n., potassium citrate once a day, multivitamin 1 tab per day, calcium carbonate 1 tab per day, chromium 400 mcg twice a day, omega-3 fish oil 1 tab twice a day. SOCIAL HISTORY: The patient denies tobacco, alcohol, IV or illicit drug use. She is unaccompanied today. IMAGING: No new imaging available. PQRS: The patient has known osteoarthritis. No rheumatoid arthritis. She is not a fall risk, has not had a fall in the last 3 months. She uses no devices [address] [address] PAIN MANAGEMENT CONSULTATION Name: OLEKSANDR HERNANDEZ Room #: [facility]#: [id number] Admission: 07/07/17 Attend Phys: Umberto Lopez DO Discharge: Date of : 47 Report #: [id number] for ambulation. She is diagnosed with hypertension and treated for the disease process. She is not on blood thinners. She rates low on the potential for opioid abuse. Her functional assessment, pain impact score 17/70, mild. PHYSICAL EXAMINATION: VITAL SIGNS: Blood pressure 120/80, pulse is 80, respiratory rate 16 and unlabored, the patient is 96% on room air. Height 5 feet 1 inch tall, weight 173 pounds, BMI calculated 32.7. GENERAL: Well-developed, well-nourished, well-hydrated 72-year-old female appearing her stated age, placing current pain score 3/10. HEENT: Normocephalic, atraumatic. Pupils equal, round, reactive to light. Extraocular muscles are intact. Sclerae nonicteric without injection. NEUROLOGIC: Cranial nerves 2-12 grossly intact. Speech remains fluent. LUNGS: Clear; no wheeze, rhonchi or rales. CARDIOVASCULAR: Regular. No appreciable gallop, no rub. ABDOMEN: Soft, obese, nondistended. EXTREMITIES: Show no clubbing, no cyanosis, no edema. MUSCULOSKELETAL: Seated straight leg raising negative. Supine straight leg raising is positive. Ted's test negative. Modified Gaenslen's positive for axial low back pain. Ankle clonus negative. Babinski is negative. Muscle bulk and tone appears equal and symmetrical in lower extremities. ASSESSMENT: 1. Symptomatic lumbar radiculopathy. 2. Progressively worsening spinal stenosis of lumbar spine. 3. Displacement of lumbar intervertebral disk with radiculopathy. 4. Lumbosacral spondylosis with radiculopathy. 5. Lumbar degeneration. 6. Chronic intractable pain. PLAN: 1. The patient returns today in followup visit, where we have discussed at length medication management and epidural injections as well as spinal cord stimulator and surgical options. The patient and I discussed the efficacy of gabapentin she is currently on. She is taking 300 mg 2 tabs 3 times a day, a total of 600 mg 3 times a day with good effect, but unfortunately side effects of sleepiness, disorientation and confusion. She states she cannot escalate the dose much further without side effect profile becoming greater. I would recommend a change in this medication. She does feel the Cymbalta is working well at 60 mg dose and she does wish to continue the therapy at this point. In regards to epidural injections and other treatment options, the patient is considering this as an option, but wishes to make adjustments in medication today. If this is effective, then she can delay the next in a series of epidural injections. 2. The patient will be started on Gralise, she was given a titration pack of [facility] [address] [place] [address] PAIN MANAGEMENT CONSULTATION Name: OLEKSANDR HERNANDEZ Room #: REG [facility] He#: [id number] Admission: 07/07/17 Attend Phys: Umberto Lopez DO Discharge: Date of : 47 Report #: [id number] Gralise starting at 600 mg 2 hours before bedtime, the equivalent of taking 600 mg 3 times a day, her current Neurontin dosing. She will then escalate based on the titration pack to hopefully a higher efficacious level with lower side effect profile. As you are aware, Gralise is once-a-day dosing taken 2 hours before bedtime with meals. This provides good and prolonged analgesic benefit from a neuropathic standpoint with lessening side effects due to its once-a-day dosing. It has been noted that immediate release gabapentin has potential significant side effects about an hour after each dose, which would correlate to morning and afternoon dose causing fairly significant dysphoric effects the patient has noted recently. The adjustment in the Gralise was made today. We are hopeful the patient will see good efficacy at doses without side effects. She will begin the titration pack, contact our clinic once she has reached a level of pain relief that provides good benefit without side effects. She is again to watch for side effects of sleepiness, disorientation, confusion and mental slowing. She was given a sample of medication today. 3. The patient was provided prescription of Cymbalta 60 mg dose 1 tab twice a day. We are increasing the Cymbalta in hopes of improving pain further. This is 120 mg dosing total, she was given this prescription with 2 refills, 3 months' worth of medication. She is to watch for any side effects with use of this medication at increasing dosing. 4. We will see the patient back in followup visit on an as-needed basis for possible epidural injection. We will discuss efficacy of medication at that visit as well. By: 0723 [id number] Umberto Lopez DO /nt
[2017-07-07 08:39] VITALS: BP 120/80
== END ==
LOC: PAIN 06:13
DX: M47.27 Other spondylosis with radiculopathy, lumbosacral region (principal); Z88.0 Allergy status to penicillin

== ENCOUNTER → 2017-07-14 | Outpatient (CLI) | payer OTHER ==
[~2017-07-14] VITALS: Ht 154.9 cm; Wt 78.5 kg
[~2017-07-14] MED LIST changes: +GRALISE300 MG PO; +GRALISE600 MG PO
--- NOTE | ~2017-07-14 | HPC ---
[facility] [address] [place] [address] PAIN MANAGEMENT CONSULTATION Name: OLEKSANDR HERNANDEZ [id number] Admission: 07/14/17 Attend Phys: Umberto Lopez DO Discharge: Date of : 46 Report #: [id number] THIS REPORT FOR: //name// CC: Shae Lopez DATE OF SERVICE: 07/14/2017 REFERRING PHYSICIAN: Shae Ramsey M.D. CHIEF COMPLAINT: Low back pain, bilateral lower extremity pain with paresthesias, right greater than left. HISTORY OF PRESENT ILLNESS: As you know, the patient is a very pleasant 72-year-old female who returns today in followup visit with continued low back pain, bilateral lower extremity pain with paresthesias, right greater than left. As you are aware, the patient suffers from lumbar radiculopathy secondary to progressively worsening spinal stenosis. The patient's spinal stenosis is multifactorial secondary to displaced lumbar intervertebral disk, facet arthropathy of the lumbar spine and lumbar degeneration. The patient at last visit was started on Gralise therapy in hopes of improving pain with neuropathic medications. She is taking 600 mg at night with good and prolonged efficacy. She is denying side effects of somnolence, decreased mental acuity, disorientation and confusion. She is placing pain score 0/10. She is extremely pleased with response of the Gralise returning today requesting a refill of this medication. She is denying again any side effects to the medication including somnolence, decreased in mental acuity, disorientation, confusion and mental slowing. ALLERGIES: PENICILLIN. CURRENT MEDICATIONS: Acyclovir 200 mg 5 times a day, ciprofloxacin 500 mg once a day, aspirin 81 mg per day, pantoprazole 40 mg per day, Gralise 900 mg p.o. at bedtime, duloxetine 60 mg per day, lactobacillus 1 tab per day, atorvastatin 10 mg per day, levothyroxine 75 mcg per day, nitroglycerin 0.4 mg p.r.n., potassium citrate once a day, multivitamin 1 tab per day and omega-3 fish oil twice a day. SOCIAL HISTORY: The patient denies tobacco, alcohol, IV or illicit drug use. She is unaccompanied today. IMAGING DATA: No new imaging available. PQRS: The patient has osteoarthritis, no rheumatoid arthritis. She is not a fall risk, has not had a fall in last 3 months. She uses no devices for ambulation. She is diagnosed with hypertension [place] [address] PAIN MANAGEMENT CONSULTATION Name: OLEKSANDR HERNANDEZ Room #: [facility]#: [id number] Admission: 07/14/17 Attend Phys: Umberto Lopez DO Discharge: Date of : 47 Report #: [id number] not on any blood thinners. Pain score rated at 0/10 and pain impact 17/70, mild interference. PHYSICAL EXAMINATION: VITAL SIGNS: Blood pressure 105/71, pulse 81 and respiratory rate 16 and unlabored. The patient is 98% on room air. Height 5 feet 1 inch tall, weight 173 pounds and BMI calculated 32.7. GENERAL: Well-developed, well-nourished, well-hydrated exogenously obese 72-year-old female appearing stated age, placing current pain score 0/10. HEENT: Normocephalic and atraumatic. Pupils equal, round and reactive to light. EXTREMITIES: Show no clubbing, no cyanosis and no edema. MUSCULOSKELETAL: Seated straight leg raising remains negative. Supine straight leg raising positive. Fabere's test negative. Modified Gaenslen's positive for axial low back pain. Ankle clonus negative. Babinski is negative. Gait appears normal. ASSESSMENT: 1. Symptomatic lumbar radiculopathy. 2. Progressively worsening spinal stenosis of the lumbar spine. 3. Displacement of lumbar intervertebral disk with radiculopathy. 4. Lumbosacral spondylosis with radiculopathy. 5. Lumbar degeneration. 6. Chronic intractable pain. PLAN: 1. The patient returns today in follow visit having noted excellent benefit with Gralise therapy. She is taking 900 mg at night, having no side effects to the medication. As you are aware, the patient was trialed initially on gabapentin and was unable to escalate doses to reach efficacious level due to side effects of somnolence, decreased mental acuity, disorientation, confusion and some lower extremity swelling and we discontinue the medication, side effects improved. We then tried the patient on Lyrica samples escalating dose as directed every 7 days. Unfortunately, the patient began to experience somnolence, decreased mental acuity and mental slowing significant enough that she cannot drive or operate heavy equipment and was fearful of being home alone but did not notice improvement in symptoms. We then trialed the patient on this once a day dosing of gabapentin in hopes of reducing her daytime sleepiness, somnolence or mental acuity issues. These have completely resolved. Her pain is now at 0/10. We would recommend she continue on the Gralise therapy. 2. We have provided the patient a prescription of Gralise 300 mg dose in conjunction with 600 mg dose for a total of 900 mg per night. She is to take this 2 hours before bedtime with a small meal. The patient is doing well with this medication. We recommend she continue and she was given this prescription #30 of each of the tablets, 2 refills, 3 months' worth of medication. 3. We will see the patient back in followup visit on an as needed basis. I am [address] [place] [address] PAIN MANAGEMENT CONSULTATION Name: OLEKSANDR HERNANDEZ Room #: REG [facility] He#: [id number] Admission: 07/14/17 Attend Phys: Umberto Lopez DO Discharge: Date of : 47 Report #: [id number] pleased to see she is doing well with medication therapy. I am glad that we were able to resolve the side effects noted both with the immediate release gabapentin and Lyrica with the Gralise. We are hopeful the patient will remain on this medication as it is providing good and prolonged efficacy and no side effects. <ELECTRONICALLY SIGNED> By: Umberto Lopez DO 07/15/17 0812 [id number] Umberto Lopez DO /nt
[2017-07-14 10:45] VITALS: BP 105/71
== END ==
LOC: PAIN 07:00
DX: M47.27 Other spondylosis with radiculopathy, lumbosacral region (principal); Z88.0 Allergy status to penicillin

== ENCOUNTER 2017-08-17 05:27 | Day surgery (SDC) | payer OTHER ==
[~2017-08-17] VITALS: Ht 154.9 cm; Wt 78.3 kg
--- NOTE | ~2017-08-17 | O ---
[facility] [place] [address] OPERATIVE REPORT Name: OLEKSANDR HERNANDEZ Room #: 150-7 [facility]#: [id number] Admission: 08/17/17 Attend Phys: Lindsay Steve MD, Discharge: Date of : 47 Report #: [id number] THIS REPORT FOR: //name// CC: Shae Steve DATE OF SERVICE: 08/17/2017 PREOPERATIVE DIAGNOSIS: Chronic appendicitis. POSTOPERATIVE DIAGNOSES: 1. Chronic appendicitis. 2. Umbilical hernia. PROCEDURES PERFORMED: 1. Laparoscopic appendectomy. 2. Laparoscopic suture repair of an umbilical hernia defect. SURGEON: Lindsay Steve MD BIOLOGY TEACHER: PARRIS Dumont ANESTHESIA: General endotracheal anesthesia. ESTIMATED BLOOD LOSS: Minimal (less than 5 mL). COMPLICATIONS: None appreciated. SPECIMENS: Appendix to pathology. INDICATIONS: The patient is a 72-year-old female who was admitted several weeks prior with an acute appendicitis with intra-abdominal abscess. The patient was treated with conservative management in the form of n.p.o. status, IV antibiotic therapy for which ultimately she underwent drainage of a periappendiceal abscess by interventional radiology. The patient had marked improvement overall and her drainage catheter was removed and as it has now been 3 months' time, she presents for elective interval appendectomy today. PROCEDURE: After explaining the risks, benefits, and alternatives of the procedure with the patient in detail in the preoperative holding area and obtaining written consent, the patient was brought to the operating room and placed supine on the operating room table. After conducting a thorough timeout procedure, verifying correct patient and procedure, the patient was given general endotracheal anesthesia. Once adequate anesthesia was obtained, her SCDs were hooked up to pneumatic compression device. She was given a preoperative dose of antibiotics in line with the SCIP protocol. The patient's [address] [place] [address] OPERATIVE REPORT Name: OLEKSANDR HERNANDEZ Room #: 150-7 [facility]#: [id number] Admission: 08/17/17 Attend Phys: Lindsay Steve MD, Discharge: Date of : 46 Report #: [id number] abdomen was prepped and draped in standard surgical sterile fashion. 5 mL of 0.5% Marcaine with epinephrine were used to anesthetize the skin in the infraumbilical location. A #15 bladed scalpel was used to create a 1-cm transverse skin incision at this location. A 12-mm Visiport was placed over 0-degree 5-mm laparoscope and was introduced through this incision site, directed through the umbilical hernia defect. Once intra-abdominal placement was verified visually, the obturator for the trocar and laparoscope were both removed and the abdomen was insufflated to 15 mmHg using carbon dioxide gas. The laparoscope was changed to a 5-mm 30-degree laparoscope, which was reintroduced through this trocar. The entire abdomen was evaluated to ensure no injury upon entry. The patient was now placed in Trendelenburg position with right side elevated and I proceeded to place two additional 5-mm trocars. One was placed in the suprapubic location and second in left lower quadrant. Both additional 5-mm ports were placed under direct vision after anesthetizing the skin at each location with 5 mL of 0.5% Marcaine with epinephrine and I had created small skin nicks using a #15 bladed scalpel. I was now able to easily identify the appendix, which appeared to have a slight scarring to the pelvic side wall. This was easily elevated with blunt dissection with laparoscopic graspers and I was able to elevate the appendix to identify the base, which was healthy. A window was made in the mesoappendix with a [place] dissector and the laparoscope was removed, changed it to left lower quadrant trocar. The Herald 45-mm stapler with a blue load was entered into the abdomen through the infraumbilical trocar where one blade of the stapler was passed through the window in the mesoappendix. The stapler was seated at the healthy base of the appendix where it was clamped and fired completely transecting the appendix. The appendix was elevated and the mesoappendix was taken down with Harmonic scalpel for hemostasis. The EndoCatch bag was placed in the infraumbilical trocar and the specimen was placed within it under direct vision. The pursestring suture was drawn and specimen was removed from the abdomen through the umbilical hernia defect with ease. I then closed the infraumbilical fascial incision performing a hernia repair using 0 PDS suture on a Roshan-Varags suture passer device in a [id number] fashion. This was tied down under direct vision as well. Evaluation of the staple line showed that it was seated nicely at the base of the healthy appendix at the level of the cecum. We had hemostasis. The patient does take aspirin and she will reinitiate this postoperatively, I did elect to place Maeve in the bed of the mesoappendix as well as on the staple line for long-term hemostasis. No further evidence of pathology was evident within the abdomen. The abdomen was fully desufflated. All remaining trocars were removed under direct vision. A 4-0 Monocryl was used in a standard subcuticular fashion for all skin incisions and Dermabond glue was applied to all skin wounds. At the end of the procedure, all instrument, needle, and sponge counts were correct. The patient tolerated the procedure [facility] [address] [place] [address] OPERATIVE REPORT Name: OLEKSANDR HERNANDEZ Room #: 150-7 [facility].#: [id number] Admission: 08/17/17 Attend Phys: Lindsay Steve MD, Discharge: Date of : 47 Report #: [id number] without incident, was awakened in the operating room, and transitioned to the recovery room in stable condition with no apparent complications. <ELECTRONICALLY SIGNED> By: Lindsay Steve MD, FACS 08/17/17 1246 [id number] [id number] Lindsay Steve MD, FACS /nt
[~2017-08-17 05:27] MED LIST changes: +KLOR-CON-EF 2525 ME1 PO; +SYNTHROID75 MCG PO; +ZYRTEC10 M5 PO
[2017-08-17 08:04] VITALS: BP 137/72
[2017-08-17] MEDS ORDERED: HYDROCODONE-AP1 EAC6 PO (10:35)
[2017-08-17 11:05] VITALS: BP 137/72
== END 2017-08-17 12:03 | disposition home or self-care (01) ==
LOC: OR 05:27 → TBA 05:28 → OR 12:03 → PRE 13:42 → EDSTATUS 13:43 → OR 13:44
DX: K42.9 Umbilical hernia without obstruction or gangrene (principal); K36 Other appendicitis; E78.5 Hyperlipidemia, unspecified; K21.9 Gastro-esophageal reflux disease without esophagitis; E03.9 Hypothyroidism, unspecified; Z98.890 Other specified postprocedural states; Z96.652 Presence of left artificial knee joint; Z88.0 Allergy status to penicillin; Z79.82 Long term (current) use of aspirin; Z79.899 Other long term (current) drug therapy
CPT/HCPCS: 50010; 50101; 50249; 50411; 50555; 50558; 50739; 50740; 50900; 50962; 52168; 52265; 52287; 53307; 54022; 54118; 55245; 56525; 56526; 62110; 62900; 70005

== ENCOUNTER → 2017-10-20 | Outpatient (CLI) | payer OTHER ==
[~2017-10-20] VITALS: Ht 154.9 cm; Wt 82.6 kg
[~2017-10-20] MED LIST changes: +HYTRIN 2MG CAPSU2 M1 PO
--- NOTE | ~2017-10-20 | HPC ---
[facility] [place] [address] PAIN MANAGEMENT CONSULTATION Name: OLEKSANDR HERNANDEZ Room #: REG [facility]#: [id number] Admission: 10/20/17 Attend Phys: Umberto Lopez DO Discharge: Date of : 47 Report #: [id number] THIS REPORT FOR: //name// CC: Shae Lopez DATE OF SERVICE: 10/20/2017 REFERRING PHYSICIAN: Shae Ramsey MD CHIEF COMPLAINT: Low back pain, bilateral lower extremity pain with paresthesias, right greater than left. HISTORY OF PRESENT ILLNESS: As you know, the patient is a 72-year-old female who returns today in followup visit to undergo spinal cord stimulator trial implantation. She is placing today's pain score at around 8/10. She states her pain has been progressively worsening. She indicates epidural injections provide transient improvement in symptoms, but no long-term benefit. She has achieved authorization to undergo a spinal cord stimulator implantation today to determine if a spinal cord stimulator can provide good and prolonged benefit. She returns today to undergo the procedure. ALLERGIES: PENICILLIN. CURRENT MEDICATIONS: Gabapentin, duloxetine, Hytrin, cetirizine, levothyroxine, potassium bicarbonate, aspirin, pantoprazole, lactobacillus, atorvastatin, multivitamin, calcium carbonate, chromium and omega-3 fish oil. IMAGING: There is no new imaging available. PQRS: The patient has osteoarthritis of the back, bilateral hips and mild in the knees. No rheumatoid arthritis. She is not a fall risk, has not had a fall in the last 3 months. She uses no ambulatory devices. She is diagnosed and treated for hypertension. She is not on blood thinners. She is a low risk for opioid abuse. Functional assessment indicates pain impact of 17. PHYSICAL EXAMINATION: VITAL SIGNS: Blood pressure 117/85, pulse 88, respiratory rate 16 and unlabored, the patient is 97% on room air, height 5 feet 1 inch tall, weight 182 pounds, and BMI calculated 34.4. GENERAL: Well-developed, well-nourished, well-hydrated 72-year-old female, appearing stated age, placing current pain score at 8/10. HEENT: Normocephalic, atraumatic. Pupils are equal, round, and reactive to light. EXTREMITIES: Show no clubbing, no cyanosis, and no edema. [facility] [address] [place] [address] PAIN MANAGEMENT CONSULTATION Name: OLEKSANDR HERNANDEZ Room #: REG [facility] Ying#: [id number] Admission: 10/20/17 Attend Phys: Umberto Lopez DO Discharge: Date of : 46 Report #: [id number] MUSCULOSKELETAL: Lower extremity strength is symmetrical 5/5, intact to light touch from L1 through S2 dermatomes. Seated straight leg raising negative. Supine straight leg raising positive. Ted's test negative. ASSESSMENT: 1. Symptomatic lumbar radiculopathy. 2. Progressively worsening spinal stenosis of lumbar spine. 3. Displacement of lumbar intervertebral disk with radiculopathy. 4. Lumbosacral spondylosis with radiculopathy. 5. Lumbar degeneration. 6. Chronic intractable pain. PLAN: 1. The patient returns today in followup visit having received precertification to undergo epidural injection under fluoroscopic guidance. The patient and I had a long discussion today about the risks and the benefits of the procedure. These risks include, but not necessarily limited to bleeding, bruising, infection, worsening of pain, no relief of pain, also risk of temporary or permanent muscle weakness, temporary or permanent nerve damage, possible paralysis and . The patient states understood and wished to proceed. 2. No medication changes were made at today's visit, the patient to continue current medical therapy as previously prescribed. 3. We will see the patient back in followup visit in 1 week. At that time, we will review the efficacy of the spinal cord stimulator and determine if she wish to move forward with permanent implant. PROCEDURE NOTE: DESCRIPTION OF PROCEDURE: Spinal cord stimulator trial implantation with two leads under fluoroscopic guidance. After obtaining informed consent, an IV Hep-Lock was placed in the patient's right upper extremity. The patient was given IV prophylactic antibiotic infused over 30 minutes prior to procedure. The patient was then taken to the fluoroscopy suite, placed in prone position with 2 pillows under the abdomen to decrease the lumbar lordosis and accentuate the thoracic kyphosis. Cardiopulmonary monitoring was then established and the patient's vital signs were monitored throughout the procedure. The patient's thoracolumbar spine was prepped and draped in aseptic fashion using chlorhexidine and draped in sterile fashion. AP fluoroscopic view was obtained to identify marked midline position of the T10 through L2 spinous processes. Skin was anesthetized with 5 mL of 1% lidocaine on the right, 5 mL of 1% lidocaine on the left. This was done prior to the introduction of the 14-gauge 4-inch Tuohy needle. Skin entry site was approximately the level of the L1 vertebral body. Needle was advanced using a [facility] [place] [address] [place] [address] PAIN MANAGEMENT CONSULTATION Name: OLEKSANDR HERNANDEZ Room #: REG [facility]#: [id number] Admission: 10/20/17 Attend Phys: Umberto Lopez DO Discharge: Date of : 46 Report #: [id number] paramedian approach at approximately 45 degree angle. Loss of resistance to air was utilized to verify placement within the epidural space. Epidural space entered at the T12-L1 interspace. Lateral fluoroscopic imaging was obtained to confirm the position of the tip of the Tuohy needle within the epidural space. Aspiration noted to be negative for both heme or cerebrospinal fluid. The patient did not complain of pain or paresthesias during needle placement. The spinal cord stimulating lead was then advanced through the Tuohy needle under direct visualization within the midline. Tip of the stimulating lead was aligned with the inferior endplate of the T7 vertebral body located within the midline. A second lead was placed on the left side by a 14-gauge 4-inch Tuohy needle being advanced on the left at a 45-degree angle. The skin entry site was approximately the L1 vertebral body. Loss of resistance to air was utilized to verify placement within the epidural space. Epidural space was entered at the T12-L1 interspace. Lateral fluoroscopic view was once again obtained to confirm the tip of the Tuohy needle within the epidural space. Aspiration noted to be negative for heme or cerebrospinal fluid. The patient did not complain of pain or paresthesias during needle placement. The stylet was removed from the Tuohy needle and the spinal cord stimulating lead was then advanced through the Tuohy needle within the midline. The tip of this stimulating lead was aligned with the inferior endplate of T8 vertebral body located within the midline. The stylets were removed from each of the leads followed by the Tuohy needle. We confirmed position of the leads during the explant of the Tuohy needles. We rechecked the lead position both in AP and lateral imaging. The stimulating leads were then anchored to the patient's back with benzoin, Steri-Strips and OpSite bandaging. The patient tolerated the procedure well, carefully escorted to recovery room in stable condition. No apparent complications. The patient was noted to be able to move all 4 extremities without complications. The patient was advised the use of the spinal cord stimulating leads and device during the trial. The patient was explained precautions such as avoiding the area getting wet. The patient was advised if she noted any fever, chills, night sweats, any type of increasing headache, or concerns of infection, she is to contact the on-call pain physician, was given phone numbers of that physician that is available 24 hours a day. If no concerns, but is having continued typical back pain, she is to contact the [employer] device industrial relations representative for adjustments in the device. We will see the patient back in followup visit in 1 week for explantation of device. <ELECTRONICALLY SIGNED> By: Umberto Lopez DO 10/22/17 [id number] Umberto Lopez DO /nt
[2017-10-20 13:22] VITALS: BP 117/85
== END | disposition home or self-care (01) ==
LOC: PAIN 07:01
DX: M51.16 Intervertebral disc disorders with radiculopathy, lumbar region (principal); M48.061 Spinal stenosis, lumbar region without neurogenic claudication; M47.27 Other spondylosis with radiculopathy, lumbosacral region; G89.29 Other chronic pain; I10 Essential (primary) hypertension; M19.90 Unspecified osteoarthritis, unspecified site; E78.5 Hyperlipidemia, unspecified; K36 Other appendicitis; Z88.0 Allergy status to penicillin; Z79.899 Other long term (current) drug therapy; Z79.82 Long term (current) use of aspirin; Z98.890 Other specified postprocedural states

== ENCOUNTER → 2018-03-16 | Outpatient (CLI) | payer OTHER ==
[~2018-03-16] VITALS: Ht 154.9 cm; Wt 81.3 kg
[~2018-03-16] MED LIST changes: +DICLOFENAC POTA50 MG PO; +MEDROLDOSEPACK PO
--- NOTE | ~2018-03-16 | HPC ---
[facility] [place] [address] PAIN MANAGEMENT CONSULTATION Name: OLEKSANDR HERNANDEZ Room #: REG [facility]#: [id number] Admission: 03/16/18 Attend Phys: Umberto Lopez DO Discharge: Date of : 46 Report #: [id number] THIS REPORT FOR: //name// CC: Shae Lopez DATE OF SERVICE: 03/16/2018 CHIEF COMPLAINT: Low back pain, bilateral lower extremity pain with paresthesias. HISTORY OF PRESENT ILLNESS: As you know, the patient is a 73-year-old female, returning in followup visit with recurrence of pain. She is now placing pain somewhere between 1-2/10. She indicates no change in medical history since our last visit. She has been doing very well with the spinal cord stimulator, but has begun to experience recurrent symptoms. She has not contacted the [employer] device rental sales representative who represents the spinal cord stimulator she has in place. She has had no adjustments made in the spinal cord stimulator since its implantation. She returns to discuss options for treatment to address residual pain. ALLERGIES: PENICILLIN. CURRENT MEDICATIONS: Hytrin, cetirizine, levothyroxine, potassium bicarbonate, aspirin, pantoprazole, lactobacillus, atorvastatin, multivitamin, calcium carbonate, chromium and omega 3 fish oil. SOCIAL HISTORY: The patient denies tobacco, alcohol, IV or illicit drug use. Unaccompanied today. IMAGING: No new imaging available. PQRS: The patient has arthritic changes of the lumbar spine, bilateral hips, bilateral knees, no rheumatoid arthritis. She is not a fall risk, has not had a fall in the last 3 months. She is not on blood thinners. She is treated for hypertension. She is not on chronic opioids. She has a low opioid addiction potential. Pain impact score is 17/70, mild interference in daily activities secondary to pain. PHYSICAL EXAMINATION: VITAL SIGNS: Blood pressure 116/62, pulse 85, respiratory rate 16 and unlabored, saturation 97% on room air. Height 5 feet 1 inch tall, weight 179.2 pounds, BMI calculated 33.9. GENERAL: Well-developed, well-nourished, well-hydrated 73-year-old female, appearing stated age, placing current pain score anywhere from 2-3/10. [address] [address] PAIN MANAGEMENT CONSULTATION Name: OLEKSANDR HERNANDEZ Room #: REG [facility]#: [id number] Admission: 03/16/18 Attend Phys: Umberto Lopez DO Discharge: Date of : 47 Report #: [id number] HEENT: Normocephalic, atraumatic. Pupils equal, round, reactive to light. EXTREMITIES: Show no clubbing, no cyanosis, no edema. MUSCULOSKELETAL: Lower extremity strength appears symmetrical again today 5/5, muscle bulk and tone equal and symmetrical in comparing left lower extremity to right. Seated straight leg raising negative. Supine straight leg raising mildly positive. YANELI test negative. Modified Gaenslen's positive for axial low back pain. Well-healed surgical scars over the spinal cord stimulator pulse generator and implantation sites of the leads. ASSESSMENT: 1. Symptomatic lumbar radiculopathy. 2. Progressively worsening spinal stenosis of the lumbar spine. 3. Displacement of lumbar intervertebral disk with radiculopathy. 4. Lumbosacral spondylosis with radiculopathy. 5. Lumbar degeneration. 6. Chronic intractable pain. PLAN: 1. The patient returns today in followup visit to discuss treatment options for her recurrent pain. She is now experiencing pain up to 2-3/10, which is still tolerable for the patient. We discussed the possibility of making adjustments in her spinal cord stimulator as she has not made any adjustments in the coverage from a pain standpoint nor has she made much in the way of changes in the actual volume of the sensation she is experiencing. Would recommend strongly that the patient contact her device rental sales representative and have adjustments made in the spinal cord stimulator to try to optimize efficacy. I would recommend this over making any medication changes given the side effects she had with gabapentin and Lyrica in the past, the medications most indicated for her symptoms. The patient is amenable. 2. The patient will return to our clinic for adjustments in her spinal cord stimulator. I have advised the patient to contact the [employer] device rental sales representative. Once they have been able to establish a time, she will return to have the device adjusted here at our clinic. We will try to accommodate the schedule of both the [employer] device rental sales representative and the patient. We will keep you apprised of her response to this adjustment. By: [id number] Umberto Lopez DO /nt
[2018-03-16 13:26] VITALS: BP 116/62
--- NOTE | 2018-03-16 13:46 | NUR ---
Pain Clinic Assessment: 1. History of Osteoarthritis: Not Applicable History of Rheumatoid Arthritis: Not Applicable 2. Height: 5 ft. 1 in. 154.9 cm. Weight: 179.2 lb. oz. 81.285 kg. Patient's BMI: 33.9 3. Vital Signs: BP: 116/62 Pulse: 85 Resp: 16 Temp: 02 Sat: 97 ECG Mon: 4. Pain Intensity: 0 5. Fall Risk: Dizziness: N Needs help standing or walking: N Fallen in the last 3 months: N Fall risk comments: 6. Patient on Blood Thinner: None 7. History of Hypertension: Y 8. Opioid Therapy greater than 6 weeks: N Opiate Contract Signed: 08/22/15 9. Risk Assessment Tool Provided: 1-low 10. Functional Assessment Tool: 11. Recreational Drug Use: Never Drug Type: Tobacco Use: Never Smoker Tobacco Type: Amount or Packs/day: How Many Years: Alcohol Use: Yes Frequency: Special Occasions Quant: 1
== END ==
LOC: PAIN 06:56
DX: M47.27 Other spondylosis with radiculopathy, lumbosacral region (principal); M48.061 Spinal stenosis, lumbar region without neurogenic claudication; R20.2 Paresthesia of skin; G89.4 Chronic pain syndrome

== ENCOUNTER → 2018-05-18 | Outpatient (CLI) | payer OTHER ==
[~2018-05-18] VITALS: Ht 154.9 cm; Wt 82.6 kg
[~2018-05-18] MED LIST changes: +DICLOFENAC SODI25 MG PO; +NABUMETONE 500500 M1 PO
--- NOTE | ~2018-05-18 | HPC ---
[facility] [place] [address] PAIN MANAGEMENT CONSULTATION Name: OLEKSANDR HERNANDEZ [id number] Admission: 05/18/18 ������������������ Attend Phys: Umberto Lopez DO Discharge: ������������������ Date of : 47 Report #: [id number] THIS REPORT FOR: //name// CC: Shae Lopez ADDENDUM MUSCULOSKELETAL: The patient is tender to palpation over the bilateral greater trochanter bursas. Deep palpation of the area causes intensification of pain. Seated straight leg raising negative. Supine straight leg raising negative. Ted's test is negative. ASSESSMENT: 1. Greater trochanteric bursitis. 2. Chronic intractable pain. PLAN: 1. The patient has returned today in followup visit with bilateral greater trochanteric bursitis. She has requested that we provide injections into the greater trochanteric bursas in hopes of improving pain. Her symptoms are exacerbated with lying on the sides or touching the area. She requested this injection to be performed today in hopes of improving her symptoms further than medication management can provide. She has been advised of the risks and the benefits of this procedure, states understood and wished to proceed. 2. No medication changes made at today's visit. The patient will continue current medical therapy as previously prescribed. 3. The patient was provided with prescription of nabumetone 500 mg dose 1 tab p.o. t.i.d. I have given the patient #90 tablets. This is to continue the anti-inflammatory effects that she is already experiencing with this medication. Prescription was given to the patient in written form today. 4. We will see the patient back in followup visit on an as needed basis for possible repeat injections or adjustments in medications. PROCEDURE NOTE DESCRIPTION OF PROCEDURE: Bilateral greater trochanteric bursa injections under fluoroscopic guidance. After obtaining written consent, the patient was taken back to the fluoroscopy suite, placed in a left lateral decubitus position. The patient was lying on the left side with the lower hip and knee flexed and the upper hip and knee extended. The trochanteric bursa on the affected side was then identified by palpation. Skin overlying the target site of injection was prepped and draped in aseptic fashion using chlorhexidine. The skin and subcutaneous tissue overlying the target site of injection was anesthetized with 2 mL of 1% lidocaine. A 22-gauge 3-1/2 inch spinal needle was inserted [place] [address] PAIN MANAGEMENT CONSULTATION Name: OLEKSANDR HERNANDEZ Room #: REG [facility] He#: [id number] Admission: 05/18/18 ������������������ Attend Phys: Umberto Lopez DO Discharge: ������������������ Date of : 47 Report #: [id number] guidance until the tip reached the greater trochanter on the right. Needle was then retracted approximately 1 mm. After negative aspiration for heme, 3 mL of a solution containing 1 mL 40 mg per mL, 40 mg total triamcinolone and 2 mL of bupivacaine 0.5% injected slowly. Needle was retracted approximately half way. The needle was then flushed with 1 mL of 1% lidocaine and removed. Sterile bandage was placed over injection site. Our attention was then directed to the left greater trochanteric bursa. The patient was then placed on the right side with the lower hip and knee flexed and the upper hip and knee extended. The trochanteric bursa on the affected side was then identified by palpation. The skin overlying the target site of injection was then prepped with chlorhexidine. A 2 mL of 1% preservative-free lidocaine was used to anesthetize skin and subcutaneous tissue directly over the injection site. A 22-gauge 3-1/2 inch spinal needle was then advanced under fluoroscopic guidance until it reached the greater trochanter. Needle was then retracted approximately by 1 mm and aspiration noted to be negative. After negative aspiration for heme, 3 mL of a solution containing 1 mL 40 mg per mL, 40 mg total triamcinolone and 2 mL of bupivacaine 0.5% injected slowly. Needle was then retracted approximately half way, flushed with 1 mL of 1% lidocaine and then removed. Sterile bandage placed over injection site. There were no new motor deficits present in the lower extremity following procedure. The patient tolerated procedure well, carefully escorted to recovery room in stable condition. No apparent complications. After meeting discharge criteria, the patient discharged home. ��������������������������������������������� ���������������������������������������� By: ��������������������������������������������� [id number] Umberto Lopez DO /nt
--- NOTE | ~2018-05-18 | HPC ---
[facility] [place] [address] PAIN MANAGEMENT CONSULTATION Name: OLEKSANDR HERNANDEZ Room #: REG [facility].#: [id number] Admission: 05/18/18 ������������������ Attend Phys: Umberto Lopez DO Discharge: ������������������ Date of : 47 Report #: [id number] THIS REPORT FOR: //name// CC: Shae Lopez DATE OF SERVICE: 05/18/2018 REFERRING PHYSICIAN: Shae Ramsey M.D. CHIEF COMPLAINT: Bilateral greater trochanter bursitis. HISTORY OF PRESENT ILLNESS: As you know, the patient is a 73-year-old female who returns today in followup visit reporting bilateral greater trochanteric bursitis. She is placing pain score at present, 0/10, but when she tries to lay on either of her sides, this exacerbates the greater trochanter pain. She has been advised to trial a greater trochanteric bursa injections. She has returned to undergo these procedures today. She indicates no injury or trauma that may have led to symptom occurrence. She indicates pain can be as high as 10/10. She returns requesting to undergo bilateral greater trochanteric injections to address her bilateral lateral hip pain. ALLERGIES: PENICILLIN. CURRENT MEDICATIONS: Hytrin, cetirizine, levothyroxine, potassium bicarbonate, aspirin, pantoprazole, lactobacillus, atorvastatin, multivitamins, calcium carbonate, chromium and omega 3 fish oil. SOCIAL HISTORY: The patient denies tobacco, alcohol, IV or illicit drug use. She is unaccompanied today. IMAGING DATA: No new imaging available. PQRS: The patient has arthritic changes of the lumbar spine, bilateral hips, bilateral knees. No rheumatoid arthritis. She is not a fall risk, has not had a fall in the last 3 months. She is not on blood thinners. She is treated for hypertension. She is on chronic opioids and has a low opioid addiction potential. She is placing pain impact score at 17/70, mild interference of daily activities secondary to pain. PHYSICAL EXAMINATION: VITAL SIGNS: Blood pressure 140/61, pulse 84 and respiratory rate 16 and unlabored. The patient is 96% on room air. Height 5 feet 1 inch tall, weight 182 pounds and BMI calculated 34.4. GENERAL: Well-developed, well-nourished, well-hydrated exogenously obese [address] [address] PAIN MANAGEMENT CONSULTATION Name: OLEKSANDR HERNANDEZ Room #: REG [facility]#: [id number] Admission: 05/18/18 ������������������ Attend Phys: Umberto Lopez DO Discharge: ������������������ Date of : 46 Report #: [id number] 73-year-old female appearing stated age, pain is rated today 0/10 at present, up to 8/10 with lying on the side. HEENT: Normocephalic and atraumatic. Pupils equal, round and reactive to light. Extraocular muscles are intact. Sclerae nonicteric without injection. NEUROLOGICAL: Cranial nerves 2 through 12 grossly intact. Speech is fluent. The patient deemed a fair historian. EXTREMITIES: Show no clubbing, no cyanosis and no edema. MUSCULOSKELETAL: The patient is tender to palpation over the bilateral greater trochanter bursas. Deep palpation of the area causes intensification of pain. Seated straight leg raising negative. Supine straight leg raising negative. Ted's test is negative. ASSESSMENT: 1. Greater trochanteric bursitis. 2. Chronic intractable pain. PLAN: 1. The patient has returned today in followup visit with bilateral greater trochanteric bursitis. She has requested that we provide injections into the greater trochanteric bursas in hopes of improving pain. Her symptoms are exacerbated with lying on the sides or touching the area. She requested this injection to be performed today in hopes of improving her symptoms further than medication management can provide. She has been advised of the risks and the benefits of this procedure, states understood and wished to proceed. 2. No medication changes made at today's visit. The patient will continue current medical therapy as previously prescribed. 3. The patient was provided with prescription of nabumetone 500 mg dose 1 tab p.o. t.i.d. I have given the patient #90 tablets. This is to continue the anti-inflammatory effects that she is already experiencing with this medication. Prescription was given to the patient in written form today. 4. We will see the patient back in followup visit on an as needed basis for possible repeat injections or adjustments in medications. PROCEDURE NOTE DESCRIPTION OF PROCEDURE: Bilateral greater trochanteric bursa injections under fluoroscopic guidance. After obtaining written consent, the patient was taken back to the fluoroscopy suite, placed in a left lateral decubitus position. The patient was lying on the left side with the lower hip and knee flexed and the upper hip and knee extended. The trochanteric bursa on the affected side was then identified by palpation. Skin overlying the target site of injection was prepped and draped in aseptic fashion using chlorhexidine. The skin and subcutaneous tissue overlying the target site of injection was anesthetized with 2 mL of 1% lidocaine. A 22-gauge 3-1/2 inch spinal needle was inserted under fluoroscopic [address] [address] PAIN MANAGEMENT CONSULTATION Name: OLEKSANDR HERNANDEZ [id number] Admission: 05/18/18 ������������������ Attend Phys: Umberto Lopez DO Discharge: ������������������ Date of : 46 Report #: [id number] guidance until the tip reached the greater trochanter on the right. Needle was then retracted approximately 1 mm. After negative aspiration for heme, 3 mL of a solution containing 1 mL 40 mg per mL, 40 mg total triamcinolone and 2 mL of bupivacaine 0.5% injected slowly. Needle was retracted approximately half way. The needle was then flushed with 1 mL of 1% lidocaine and removed. Sterile bandage was placed over injection site. Our attention was then directed to the left greater trochanteric bursa. The patient was then placed on the right side with the lower hip and knee flexed and the upper hip and knee extended. The trochanteric bursa on the affected side was then identified by palpation. The skin overlying the target site of injection was then prepped with chlorhexidine. A 2 mL of 1% preservative-free lidocaine was used to anesthetize skin and subcutaneous tissue directly over the injection site. A 22-gauge 3-1/2 inch spinal needle was then advanced under fluoroscopic guidance until it reached the greater trochanter. Needle was then retracted approximately by 1 mm and aspiration noted to be negative. After negative aspiration for heme, 3 mL of a solution containing 1 mL 40 mg per mL, 40 mg total triamcinolone and 2 mL of bupivacaine 0.5% injected slowly. Needle was then retracted approximately half way, flushed with 1 mL of 1% lidocaine and then removed. Sterile bandage placed over injection site. There were no new motor deficits present in the lower extremity following procedure. The patient tolerated procedure well, carefully escorted to recovery room in stable condition. No apparent complications. After meeting discharge criteria, the patient discharged home. ��������������������������������������������� ���������������������������������������� By: ��������������������������������������������� [id number] Umberto Lopez DO /nt
[2018-05-18 11:06] VITALS: BP 140/16
--- NOTE | 2018-05-18 11:17 | NUR ---
Pain Clinic Assessment: 1. History of Osteoarthritis: Not Applicable History of Rheumatoid Arthritis: Not Applicable 2. Height: 5 ft. 1 in. 154.9 cm. Weight: 182.0 lb. oz. 82.555 kg. Patient's BMI: 34.4 3. Vital Signs: BP: 140/16 Pulse: 84 Resp: 16 Temp: 02 Sat: 96 ECG Mon: 4. Pain Intensity: 0 5. Fall Risk: Dizziness: N Needs help standing or walking: N Fallen in the last 3 months: N Fall risk comments: 6. Patient on Blood Thinner: None 7. History of Hypertension: Y 8. Opioid Therapy greater than 6 weeks: N Opiate Contract Signed: 08/22/15 9. Risk Assessment Tool Provided: 1-low 10. Functional Assessment Tool: 11. Recreational Drug Use: Never Drug Type: Tobacco Use: Never Smoker Tobacco Type: Amount or Packs/day: How Many Years: Alcohol Use: No Frequency: Quant:
== END | disposition home or self-care (01) ==
LOC: PAIN 07:13
DX: M70.62 Trochanteric bursitis, left hip (principal); M70.61 Trochanteric bursitis, right hip; G89.29 Other chronic pain; I10 Essential (primary) hypertension; M19.90 Unspecified osteoarthritis, unspecified site; Z79.82 Long term (current) use of aspirin; Z79.899 Other long term (current) drug therapy; Z88.0 Allergy status to penicillin; Z79.891 Long term (current) use of opiate analgesic

== ENCOUNTER → 2018-07-07 | Outpatient (CLI) | payer OTHER ==
[~2018-07-07] VITALS: Ht 154.9 cm; Wt 83.0 kg
[2018-07-07 08:20] VITALS: BP 132/92
--- NOTE | 2018-07-07 08:24 | NUR ---
Pain Clinic Assessment: 1. History of Osteoarthritis: Not Applicable History of Rheumatoid Arthritis: Not Applicable 2. Height: 5 ft. 1 in. 154.9 cm. Weight: 183.0 lb. oz. 83.008 kg. Patient's BMI: 34.6 3. Vital Signs: BP: 132/92 Pulse: 75 Resp: 16 Temp: 02 Sat: 96 ECG Mon: 4. Pain Intensity: 0 5. Fall Risk: Dizziness: N Needs help standing or walking: N Fallen in the last 3 months: Y Fall risk comments: 6. Patient on Blood Thinner: None 7. History of Hypertension: Y 8. Opioid Therapy greater than 6 weeks: N Opiate Contract Signed: 08/22/15 9. Risk Assessment Tool Provided: 1-low 10. Functional Assessment Tool: 11. Recreational Drug Use: Never Drug Type: Tobacco Use: Never Smoker Tobacco Type: Amount or Packs/day: How Many Years: Alcohol Use: No Frequency: Quant:
--- NOTE | 2018-07-13 07:41 | HPC ---
[facility] [address] [place] [address] PAIN MANAGEMENT CONSULTATION Name: OLEKSANDR HERNANDEZ Room #: REG [facility].#: [id number] Admission: 07/07/18 ������������������ Attend Phys: Umberto Lopez DO Discharge: ������������������ Date of : 46 Report #: [id number] THIS REPORT FOR: //name// CC: Shae Lopez DATE OF SERVICE: 07/07/2018 REFERRING PHYSICIAN: Shae Ramsey MD. CHIEF COMPLAINT: Right lower extremity pain. HISTORY OF PRESENT ILLNESS: As you know, the patient is a 73-year-old female who returns today in followup visit with 100% improvement in overall pain with the bilateral greater trochanteric bursitis injections provided in last visit. Unfortunately, the patient continues to experience what appears to be lumbar radiculopathy radiating down the right leg. 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 The patient typically had low back pain, left lower extremity pain with her central canal stenosis for which the patient underwent a spinal cord stimulator with good benefit. Unfortunately, she now is experiencing lower extremity pain, though today her pain is only rated at 2/10. She denies injury or trauma or any changes in medical history since her last visit. She returns to discuss treatment options. ALLERGIES: PENICILLIN. CURRENT MEDICATIONS: See chart. SOCIAL HISTORY: The patient denies tobacco, alcohol, IV or illicit drug use. She is unaccompanied today. IMAGING: No new imaging available. PQRS: The patient has no known arthritic change of the lumbar spine, bilateral hips, and bilateral knees. No rheumatoid arthritis. She is not a fall risk, has not had a fall in the last 3 months. She is placing pain intensity today at 0/10. She is not on blood thinners, but is treated for hypertension. She is not on chronic opioids and has a low opioid addiction potential. She is placing pain impact score at 17/70, mild interference of daily activities secondary to pain. PHYSICAL EXAMINATION: VITAL SIGNS: Blood pressure 132/92, pulse is 75, respiratory rate [address] [facility] [address] [place] [address] PAIN MANAGEMENT CONSULTATION Name: OLEKSANDR HERNANDEZ Room #: [facility]#: [id number] Admission: 07/07/18 ������������������ Attend Phys: Umberto Lopez DO Discharge: ������������������ Date of : 46 Report #: [id number] unlabored. The patient is 96% on room air. Height 5 feet 1 inch tall, weight 183 pounds, BMI calculated 34.6. GENERAL: Well-developed, well-nourished, well-hydrated exogenously obese 73-year-old female. She appears stated age, placing current pain score 0/10. HEENT: Normocephalic, atraumatic. Pupils equal, round, reactive to light. EXTREMITIES: Show no clubbing, no cyanosis, and no edema. MUSCULOSKELETAL: Lower extremity strength appears symmetrical 5/5. She does have slight giveaway strength noted on the right with hip flexion and knee extension, which generates a mild amount of pain; normal on the left. Muscle bulk and tone is equal and symmetrical in comparing left lower extremity to right. Intact to light touch from L1 through S2 dermatomes. Seated straight leg raising negative. Supine straight leg raising mildly positive right. ASSESSMENT: 1. Symptomatic lumbar radiculopathy. 2. Progressively worsening spinal stenosis of lumbar spine. 3. Displacement of lumbar intervertebral disk with radiculopathy. 4. Lumbosacral spondylosis with radiculopathy. 5. Lumbar degeneration. 6. Chronic intractable pain. PLAN: 1. The patient returns today in followup visit where we have discussed at length the initial presentation of right lower extremity pain with paresthesias. This is not unusual in central canal stenosis patients. Many times these patients will have waxing and waning features involving one or both of the lower extremities. Unfortunately, the patient is not experiencing symptoms on the right side. We have suggested that the patient have adjustments made in her spinal cord stimulator in hopes of covering both legs instead of just the low back and left leg. Adjustments can be made in programming that allows for programming to be able to address right lower extremity pain and paresthesias when they are present and left lower extremity pain and paresthesia when they are present. The patient has capabilities of 3 different programming styles that can cover bilateral lower extremity pain, left lower extremity pain or right lower extremity pain. We recommend adjustments in this device initially to determine if her symptoms can be improved, which I believe they could. 2. We did discuss possibility of adding medication management to the patient's list of treatment options as well as possibly having the patient undergo next in the series of lumbar epidural injections. At this point, the patient and I both agree that we should make adjustments in her [employer] device. If this can capture the patient's overall pain, we can do this with the preexisting treatment option and improve efficacy with the use of the device. If this is ineffective, medication management and epidural injections could be addressed. The patient is amenable. 3. The patient will make an appointment with the [employer] device personnel representative. They can either meet here at the clinic later this afternoon or [address] [address] PAIN MANAGEMENT CONSULTATION Name: OLEKSANDR HERNANDEZ Room #: REG [facility]#: [id number] Admission: 07/07/18 ������������������ Attend Phys: Umberto Lopez DO Discharge: ������������������ Date of : 46 Report #: [id number] some future date to make adjustments in the programming in hopes of improving the patient's overall pain. They will make this appointment in tandem. They will advise us if adjustments need to be made from our end. 4. We will see the patient back in followup visit on an as needed basis. We are hopeful the adjustments made with the [employer] device personnel representative on the spinal cord stimulator will be effective at treating pain. If it is not, I will see her back in followup visit. ��������������������������������������������� <ELECTRONICALLY SIGNED> ���������������������������������������� By: Umberto Lopez DO ��������������������������������������������� 07/13/18 0741 1522 0240 Umberto Lopez DO /nt
== END ==
LOC: PAIN 06-01 09:27
DX: M47.26 Other spondylosis with radiculopathy, lumbar region (principal); G89.4 Chronic pain syndrome; M48.061 Spinal stenosis, lumbar region without neurogenic claudication; Z88.0 Allergy status to penicillin

== ENCOUNTER → 2018-08-03 | Outpatient (CLI) | payer OTHER ==
[~2018-08-03] VITALS: Ht 154.9 cm; Wt 78.5 kg
[~2018-08-03] MED LIST changes: +IRON325 PO; +MAGOX 400400 MG PO; +TOPAMAX50 MG PO; +VITAMIN D2000 UNIT PO; +WELLBUTRIN SR100 MG PO; +[UNRECOGNIZED DRUG - OTHER] PO
[2018-08-03 08:22] VITALS: BP 108/81
--- NOTE | 2018-08-03 08:44 | NUR ---
Pain Clinic Assessment: 1. History of Osteoarthritis: Not Applicable History of Rheumatoid Arthritis: Not Applicable 2. Height: 5 ft. 1 in. 154.9 cm. Weight: 173.0 lb. oz. 78.472 kg. Patient's BMI: 32.7 3. Vital Signs: BP: 108/81 Pulse: 85 Resp: 16 Temp: 02 Sat: 98 ECG Mon: 4. Pain Intensity: 1-5 5. Fall Risk: Dizziness: N Needs help standing or walking: N Fallen in the last 3 months: N Fall risk comments: 6. Patient on Blood Thinner: None 7. History of Hypertension: Y 8. Opioid Therapy greater than 6 weeks: N Opiate Contract Signed: 08/22/15 9. Risk Assessment Tool Provided: 1-low 10. Functional Assessment Tool: 11. Recreational Drug Use: Never Drug Type: Tobacco Use: Never Smoker Tobacco Type: Amount or Packs/day: How Many Years: Alcohol Use: No Frequency: Quant:
--- NOTE | 2018-08-04 07:47 | HPC ---
[facility] [place] [address] PAIN MANAGEMENT CONSULTATION Name: OLEKSANDR HERNANDEZ Room #: REG [facility]#: [id number] Admission: 08/03/18 ������������������ Attend Phys: Umberto Lopez DO Discharge: ������������������ Date of : 46 Report #: [id number] THIS REPORT FOR: //name// CC: Shae Lopez DATE OF SERVICE: 08/03/2018 REFERRING PHYSICIAN: Shae Ramsey MD. CHIEF COMPLAINT: Low back pain, bilateral lower extremity pain, right greater than left. HISTORY OF PRESENT ILLNESS: As you know, the patient is a 73-year-old female who returns today in followup visit requesting to undergo next in the series of lumbar epidural injections to address lumbar radicular symptoms and right lower extremity pain with paresthesias. She is placing pain anywhere from 1-5/10. She denies new injury, new trauma or any changes in medical history since our last visit. She returns today requesting this epidural injection to build on success of previous intervention. ALLERGIES: No known drug allergies. CURRENT MEDICATIONS: See chart. SOCIAL HISTORY: The patient denies tobacco, alcohol, IV or illicit drug use. She is unaccompanied today. IMAGING: No new imaging available. PQRS: The patient has known arthritic changes of the lumbar spine, bilateral hips and bilateral knees. No rheumatoid arthritis. She is placing pain intensity anywhere from 1-5/10. She is not a fall risk, has not had a fall in the last 3 months. She is not on blood thinners, but is treated for hypertension. She is not on chronic opioid medications, but does have a low opioid addiction potential. She is placing pain impact score of 17 of 70 indicating mild interference of daily activities secondary to pain. PHYSICAL EXAMINATION: VITAL SIGNS: Blood pressure 108/81, pulse 85, respiratory rate 16 and unlabored. The patient is 98% on room air. Height 5 feet 1 inch tall, weight 173 pounds, BMI calculated 32.7. GENERAL: Well-developed, well-nourished, well-hydrated exogenously obese 73-year-old female appearing stated age. Pain is rated today at 1-5/10 depending on activity. [facility] [address] [place] [address] PAIN MANAGEMENT CONSULTATION Name: OLEKSANDR HERNANDEZ Room #: [facility]#: [id number] Admission: 08/03/18 ������������������ Attend Phys: Umberto Lopez DO Discharge: ������������������ Date of : 46 Report #: [id number] HEENT: Normocephalic, atraumatic. Pupils equal, round, reactive to light. EXTREMITIES: Show no clubbing, no cyanosis, and no edema. MUSCULOSKELETAL: Lower extremity strength is symmetrical 5/5. Muscle bulk and tone equal and symmetrical in comparing left lower extremity over right. Pain is elicited with seated straight leg raising on the right. Supine straight leg raising positive right. ASSESSMENT: 1. Symptomatic lumbar radiculopathy. 2. Progressively worsening spinal stenosis of the lumbar spine. 3. Displacement of lumbar intervertebral disk with radiculopathy. 4. Lumbosacral spondylosis with radiculopathy. 5. Lumbar degeneration. 6. Chronic intractable pain. PLAN: 1. The patient returns today in followup visit requesting to undergo a lumbar epidural injection under fluoroscopic guidance. The patient indicates pain is at a level of 1-5/10 depending on activity. She received excellent benefit with previous epidural injections up to 80% improvement in overall pain. She returns today to undergo next in the series of epidural injections to build on success of previous intervention. The patient was advised risks and benefits, states understood and wished to proceed. 2. No medication changes made at today's visit. The patient will continue current medical therapy as previously prescribed. 3. We will see the patient back in followup visit on an as needed basis for next in the series of lumbar epidural injections or to discuss other treatment considerations including bilateral bursitis noted over the greater trochanters again today. PROCEDURE NOTE: DESCRIPTION OF PROCEDURE: L5-S1 interlaminar epidural steroid injection under fluoroscopic guidance. After obtaining written consent, the patient was taken back to fluoroscopy suite, placed in prone position with pillow under abdomen to decrease lumbar lordosis. Skin overlying lumbosacral area then prepped and draped in aseptic fashion. L5-S1 vertebral interspace identified by AP fluoroscopy. Skin and subcutaneous tissue overlying target site of injection was anesthetized with 3 mL of 1% lidocaine. A 20-gauge 3-1/2 inch Tuohy needle advanced under fluoroscopic guidance towards the epidural space using a paramedian approach. Epidural space identified using loss of resistance to air technique. After negative aspiration for heme or cerebrospinal fluid, 1 mL of Isovue injected. Lumbar epidurogram confirmed [address] [address] PAIN MANAGEMENT CONSULTATION Name: OLEKSANDR HERNANDEZ Room #: REG [facility]#: [id number] Admission: 08/03/18 ������������������ Attend Phys: Umberto Lopez DO Discharge: ������������������ Date of : 46 Report #: [id number] using both AP and lateral fluoroscopy. After negative aspiration for heme or cerebrospinal fluid, 5 mL of a solution containing 2 mL 40 mg per mL, 80 mg total triamcinolone, 3 mL lidocaine 1% injected slowly. Needle retracted mcc, flushed with 1 mL of 1% lidocaine and then removed. Sterile bandage placed over injection site. No new motor deficits present in lower extremity following procedure. The patient tolerated procedure well, carefully escorted to recovery room in stable condition. No apparent complication. After meeting discharge criteria, the patient was discharged home. ��������������������������������������������� <ELECTRONICALLY SIGNED> ���������������������������������������� By: Umberto Lopez DO ��������������������������������������������� 08/04/18 0747 1030 2317 Umberto Lopez DO /nt
== END | disposition home or self-care (01) ==
LOC: PAIN 06:36
DX: M51.16 Intervertebral disc disorders with radiculopathy, lumbar region (principal); M48.061 Spinal stenosis, lumbar region without neurogenic claudication; M47.27 Other spondylosis with radiculopathy, lumbosacral region; G89.29 Other chronic pain; I10 Essential (primary) hypertension; E78.5 Hyperlipidemia, unspecified; E66.09 Other obesity due to excess calories; Z87.19 Personal history of other diseases of the digestive system; Z88.0 Allergy status to penicillin; Z98.890 Other specified postprocedural states; Z68.32 Body mass index [BMI] 32.0-32.9, adult; Z79.899 Other long term (current) drug therapy

== ENCOUNTER → 2018-10-12 | Outpatient (CLI) | payer OTHER ==
[~2018-10-12] VITALS: Ht 154.9 cm; Wt 71.1 kg
[2018-10-12 13:12] VITALS: BP 108/72
--- NOTE | 2018-10-12 13:41 | NUR ---
Pain Clinic Assessment: 1. History of Osteoarthritis: Not Applicable History of Rheumatoid Arthritis: Not Applicable 2. Height: 5 ft. 1 in. 154.9 cm. Weight: 156.8 lb. oz. 71.124 kg. Patient's BMI: 29.6 3. Vital Signs: BP: 108/72 Pulse: 76 Resp: 16 Temp: 02 Sat: 97 ECG Mon: 4. Pain Intensity: 0 7 with exercise 5. Fall Risk: Dizziness: N Needs help standing or walking: N Fallen in the last 3 months: Y Fall risk comments: 6. Patient on Blood Thinner: None 7. History of Hypertension: Y 8. Opioid Therapy greater than 6 weeks: N Opiate Contract Signed: 08/22/15 9. Risk Assessment Tool Provided: 1-low 10. Functional Assessment Tool: 11. Recreational Drug Use: Never Drug Type: Tobacco Use: Never Smoker Tobacco Type: Amount or Packs/day: How Many Years: Alcohol Use: No Frequency: Quant:
--- NOTE | 2018-10-13 15:10 | HPC ---
[facility] [address] [place] [address] PAIN MANAGEMENT CONSULTATION Name: DAVIDOLEKSANDR Bernard [id number] Admission: 10/12/18 Attend Phys: Radha Camilo Discharge: Date of : 47 Report #: [id number] THIS REPORT FOR: //name// CC: Radha Ramsey DATE OF SERVICE: 10/12/2018 CHIEF COMPLAINT: Low back pain and bilateral lower extremity pain. HISTORY OF PRESENT ILLNESS: This is a very pleasant 73-year-old female who returns to the pain clinic today for a refill of nabumetone that she uses to help treat her ongoing low back pain. The patient reports that her spinal cord stimulator is working quite well and does help a significant portion of her low back pain and leg pain. She also had an epidural steroid injection about 2 months ago. She is at least 50% better. She said, especially in her low back, she is still having some pain in her bursas bilaterally. She reports a pain score of 0/10 currently, but when she does lay on her sides of her hips, doing her exercises and yoga daily, that does increase her pain at a rate of 7/10. Pain is worse with activity and gardening. The patient is requesting refill of her medicine today and then would like to discuss another bilateral bursa injection. The patient tells me she is starting a new study for Alzheimer's prevention exercise program through . She is in the middle of doing the prework to see if she can be included in the study. Her processes chemical design engineer has referred her to this LEAP study [facility]. ALLERGIES: PENICILLIN. MEDICATIONS: Nabumetone 500 mg, Topamax 50 mg b.i.d., bupropion 100 mg, Mag-Ox 400 mg, vitamin D3, Fiber Hemal, iron, Zyrtec, Synthroid 750 mcg, potassium, Protonix, probiotic, Lipitor 10 mg, multivitamin, chromium and omega-3. PQRS: 1. She has known arthritic changes in her lumbar spine, bilateral hips and knees. Denies any rheumatoid arthritis. 2. Height is 5 feet 1 inch, weight is 156, BMI is 29. 3. Vital signs: 108/72, pulse is 76, respirations 16, oxygen sat is 97. 4. Pain is zero in her back and 7 and her hips during exercise. 5. Denies dizziness. Does not need help walking or standing, has not fallen in the last 3 months. 6. The patient is not on any blood thinners. She does take medicine for hypertension. 7. She has not taken opioids in the last 6 weeks, but she does have [place] [address] PAIN MANAGEMENT CONSULTATION Name: OLEKSANDR HERNANDEZ Room #: REG [facility] He#: [id number] Admission: 10/12/18 Attend Phys: Radha Camilo Discharge: Date of : 47 Report #: [id number] 8. Risk assessment tool is low. Functional assessment is . 9. Recreational drug use, she denies. She is not a smoker and does not drink alcohol. PHYSICAL EXAMINATION: GENERAL: This is a well-developed, well-nourished, well-hydrated, exogenous, obese 73-year-old female who appears her stated age, placing her current pain score at 0/10 today or 7/10 depending on activity. HEENT: Normocephalic, atraumatic. Extraocular eye muscles are intact. Mucous membranes are moist. EXTREMITIES: No clubbing, no cyanosis, no edema. MUSCULOSKELETAL: She is tender to palpation over her greater trochanteric bursas bilaterally, the right worse than the left. Deep palpation of the area causes increase in pain. Seated straight leg raising is negative. Her lower extremity strength is symmetrical at 5/5, muscle bulk and tone equal and symmetrical. She does have a spinal cord stimulator battery pack in her left buttock. ASSESSMENT: 1. Symptomatic lumbar radiculopathy. 2. Progressing worse spinal stenosis of the lumbar spine. 3. Displacement of lumbar intervertebral disk with radiculopathy. 4. Lumbosacral spondylosis with radiculopathy. 5. Lumbar degeneration. 6. Greater trochanteric bursitis bilaterally. 7. Chronic intractable pain. We reviewed the fact that opiate medications are being used to provide analgesia adequate to support activities of daily living, not attempting to achieve a specific pain score on the 0-10 Visual Analog Scale. The current opiate medications are providing sufficient analgesia to allow the patient to participate in activities of daily living. The patient is not exhibiting any aberrant behavior suggestive of drug diversion. The patient is not having any adverse reactions to medications. The patient is not suffering from daytime somnolence or mental acuity changes. The patient is managing opiate-induced constipation with appropriate [id number] agents and dietary considerations. The patient was counseled on concern for caution with operating a motor vehicle while using opiate medications. A physical exam was performed and the patient's functional status was evaluated. All patients with back pain were advised against the bed rest greater than 4 days and were advised to return to normal activities. Pain score assessment was noted and the treatment plan was reviewed with the patient. All current medications, both prescribed and OTC were reviewed and reconciled on the electronic medical record. Tobacco screening was accomplished and smoking cessation was advised when indicated. BMI was noted and diet/exercise [facility] [address] [place] [address] PAIN MANAGEMENT CONSULTATION Name: OLEKSANDR HERNANDEZ Room #: REG [facility]#: [id number] Admission: 10/12/18 Attend Phys: Radha RICKI Camilo Discharge: Date of : 47 Report #: [id number] modification was recommended for all patients following outside normal parameters. I reviewed with the patient today their responsibilities to safeguard prescription medications, reviewed their responsibility to utilize medications only as prescribed by the physician. They are to seek and receive pain medications only from 1 physician group ( [facility]). They are to use 1 pharmacy and keep the clinic informed if they change pharmacies. Their responsibilities include making followup visits in a timely fashion and to avoid abrupt discontinuation of medication usage. Their responsibilities further include bringing their medications (bottles from the pharmacy with residual pills) to the visit for possible confirmation of pill counts and the patient understands it is their responsibility to submit to random drug screens to ensure both that the medications prescribed are present, and that no other controlled substances are present. All prescriptions provided today were generated electronically. PLAN: 1. The patient is here for renewal of her nabumetone. The patient does take this up to 3 times a day. Does not have any GI complications from this medication. We will give her 500 mg, #90, with 5 additional refills for a total of 6 months. 2. The patient feels that she is in need of a bursa injection. The last ones were very beneficial by Dr. mUberto Lopez. They were in April and she feels that they have slowly worn off. She notices a significant increase in her pain when she is doing her yoga exercises lying on her sides. We will schedule an appointment for an injection when her schedule enables this visit. 3. The patient is seen today in collaboration with Dr. Umberto Lopez. The patient will call for an appointment as needed for the injections. <ELECTRONICALLY SIGNED> By: Radha Camilo 10/13/18 1510 [id number] Radha Camilo /nt
== END ==
LOC: PAIN 06:57
DX: M51.17 Intervertebral disc disorders with radiculopathy, lumbosacral region (principal); M48.07 Spinal stenosis, lumbosacral region; M47.27 Other spondylosis with radiculopathy, lumbosacral region; M70.62 Trochanteric bursitis, left hip; M70.61 Trochanteric bursitis, right hip; Z79.899 Other long term (current) drug therapy

== ENCOUNTER → 2018-12-28 | Outpatient (CLI) | payer OTHER ==
[~2018-12-28] VITALS: Ht 152.4 cm; Wt 65.9 kg
[~2018-12-28] MED LIST changes: +RIBOFLAVIN400 MG PO; +SHINGRIX V50 MCG/0.5 IM
[2018-12-28 09:09] VITALS: BP 110/63
--- NOTE | 2018-12-28 09:17 | NUR ---
Pain Clinic Assessment: 1. History of Osteoarthritis: Not Applicable History of Rheumatoid Arthritis: Not Applicable 2. Height: 5 ft. 0 in. 152.4 cm. Weight: 145.2 lb. oz. 65.862 kg. Patient's BMI: 28.4 3. Vital Signs: BP: 110/63 Pulse: 67 Resp: 16 Temp: 02 Sat: 99 ECG Mon: 4. Pain Intensity: 0 6 with exercise 5. Fall Risk: Dizziness: N Needs help standing or walking: N Fallen in the last 3 months: N Fall risk comments: 6. Patient on Blood Thinner: None 7. History of Hypertension: Y 8. Opioid Therapy greater than 6 weeks: N Opiate Contract Signed: 08/22/15 9. Risk Assessment Tool Provided: 1-low 10. Functional Assessment Tool: 11. Recreational Drug Use: Never Drug Type: Tobacco Use: Never Smoker Tobacco Type: Amount or Packs/day: How Many Years: Alcohol Use: No Frequency: Quant:
--- NOTE | 2019-01-04 12:48 | HPC ---
[facility] [place] [address] PAIN MANAGEMENT CONSULTATION Name: OLEKSANDR HERNANDEZ Room #: REG [facility]#: [id number] Admission: 12/28/18 Attend Phys: Umberto Lopez DO Discharge: Date of : 47 Report #: [id number] THIS REPORT FOR: //name// CC: Shae Lopez DATE OF SERVICE: 12/28/2018 CHIEF COMPLAINT: Bilateral hip pain. HISTORY OF PRESENT ILLNESS: As you know, the patient is a 73-year-old female returning in followup visit with bilateral hip pain. She indicates pain is exacerbated with activity such as standing and walking, improves with sitting and lying down. She is able to localize pain directly over the bilateral hips. She has undergone trochanteric bursa injections in the past, which provided improvement in the superficial pain, but did not affect the deeper pain believed to be due to her hips. She returns today in followup visit to undergo right intraarticular hip injection to determine if her symptoms will improve with such procedures. ALLERGIES: PENICILLIN. CURRENT MEDICATIONS: Nabumetone, bupropion, vitamin D3, iron, Zyrtec, Synthroid, potassium, Protonix, probiotics, Lipitor, multivitamin, chromium and omega-3. SOCIAL HISTORY: The patient denies tobacco, alcohol, IV or illicit drug use. She is unaccompanied today. PQRS: The patient has known arthritic changes of the lumbar spine, bilateral hips and knees. No rheumatoid arthritis. Pain intensity today is 6/10, not a fall risk, has not had a fall in last 3 months, not on blood thinners, but is treated for hypertension. She is not on opioids and has a low opiate addiction potential. Pain impact score of 17/70 indicating mild interference of daily activities secondary to pain. PHYSICAL EXAMINATION: VITAL SIGNS: Blood pressure 110/63, pulse 67, respiratory rate 16 and unlabored, the patient is 99% on room air. Height 5 feet tall, weight 145.2 pounds, BMI calculated 28.4. GENERAL: Well-developed, well-nourished, well-hydrated 73-year-old female appearing stated age, pain is rated today at approximately 0/10 when seated and lying position, 6/10 with ambulation and weightbearing. HEENT: Normocephalic, atraumatic. Pupils equal, round, reactive to light. EXTREMITIES: Show no clubbing, no cyanosis, no edema. [address] [address] PAIN MANAGEMENT CONSULTATION Name: OLEKSANDR HERNANDEZ Room #: [facility] [id number] Admission: 12/28/18 Attend Phys: Umberto Lopez DO Discharge: Date of : 46 Report #: [id number] MUSCULOSKELETAL: The patient has difficulty with internal and external rotation of the left hip and right hip, right greater than left. Pain is elicited with both maneuvers in active and passive range. Ted's test is essentially positive bilaterally, right greater than left. There is no radicular component to the symptoms the patient is experiencing. SI joints are tender, but do not cause typical pain. ASSESSMENT: 1. Bilateral hip osteoarthritis. 2. Right hip pain. 3. Left hip pain. 4. Chronic intractable pain. PLAN: 1. The patient has returned today in followup visit with what appears to be intrinsic hip pathology causing bilateral hip pain. She states her right hip is much more intense than the left. She wishes to address this right hip pain more completely. We discussed the options for treatment today. The following was discussed with the patient. We discussed physical therapy, stretching exercise and core strengthening as a way to treat the ongoing pain as well as mobility treatments to assess and to maintain function. We discussed medication management changes in hopes of improving pain by adjusting her nonsteroidal anti-inflammatories whether these are applied topically or orally. We discussed intra-articular hip injections and ultimately surgical procedures. After reviewing risks and benefits of all proposed treatment options, the patient chose to undergo right intraarticular hip injection under fluoroscopic guidance. 2. The patient was advised risks and benefits of a right intra-articular hip injection. These risks include but are not necessarily limited to bleeding, bruising, infection, worsening pain, no relief of pain, also risk of temporary or permanent muscle weakness, temporary or permanent nerve damage, possible joint destruction or . The patient states understood and wished to proceed. 3. The patient is to continue her current anti-inflammatory as directed. This is providing good baseline pain control. We will continue the medication as directed. 4. We will see the patient back in followup visit for a possible left intra-articular hip injection in approximately 2 weeks. PROCEDURE NOTE: DESCRIPTION OF PROCEDURE: Right intraarticular hip injection under fluoroscopic guidance. After obtaining written consent, the patient was taken back to fluoroscopy suite, placed in a supine position. The image intensifier was then brought into position over the right hip and AP imaging was obtained. The area overlying the injection site was then prepped and draped in aseptic fashion. A sterile marker [address] [address] PAIN MANAGEMENT CONSULTATION Name: OLEKSANDR HERNANDEZ Room #: REG [facility]#: [id number] Admission: 12/28/18 Attend Phys: Umberto Lopez DO Discharge: Date of : 46 Report #: [id number] was then placed over the injection site and imaging was obtained. A 25-gauge 1-1/2 inch needle was then used to anesthetize skin and subcutaneous tissue with 1 mL of 1% lidocaine. A 25-gauge 3-inch spinal needle with bent tip was advanced towards the right hip under AP fluoroscopic imaging. Needle was advanced until reaching the proximal head of the femur. After reaching the proximal head of the femur, needle was then retracted approximately 1 mm and aspiration noted to be negative for heme. After negative aspiration for heme, 1 mL of Omnipaque injected demonstrating an excellent right hip arthrogram. After negative aspiration for heme, 4 mL of a solution containing 1 mL 40 mg per mL, 40 mg total triamcinolone along with 3 mL bupivacaine 0.5% was injected slowly. Needle retracted detention, flushed with 1 mL of 1% lidocaine and removed. Sterile bandage placed over the injection site. There were no new motor deficits present in the lower extremities following procedure. The patient tolerated procedure well, carefully escorted to recovery room in stable condition. No apparent complications. VAS before procedure rated up to 6/10, VAS 10 minutes after procedure rated at 0/10. After meeting our discharge criteria, the patient discharged home. <ELECTRONICALLY SIGNED> By: Umberto Lopez DO 01/04/19 1248 [id number] Umberto Lopez, /nt
== END | disposition home or self-care (01) ==
LOC: PAIN 10-26 10:05
DX: M25.551 Pain in right hip (principal); M25.552 Pain in left hip; M16.0 Bilateral primary osteoarthritis of hip; G89.29 Other chronic pain; I10 Essential (primary) hypertension; M19.90 Unspecified osteoarthritis, unspecified site; Z98.890 Other specified postprocedural states; Z88.0 Allergy status to penicillin; Z79.899 Other long term (current) drug therapy

== ENCOUNTER → 2019-02-15 | Outpatient (CLI) | payer OTHER ==
[~2019-02-15] VITALS: Ht 152.4 cm; Wt 66.3 kg
[2019-02-15 14:03] VITALS: BP 129/80
--- NOTE | 2019-02-15 14:28 | NUR ---
Pain Clinic Assessment: 1. History of Osteoarthritis: Not Applicable History of Rheumatoid Arthritis: Not Applicable 2. Height: 5 ft. 0 in. 152.4 cm. Weight: 146.2 lb. oz. 66.316 kg. Patient's BMI: 28.6 3. Vital Signs: BP: 129/80 Pulse: 72 Resp: 14 Temp: 02 Sat: 99 ECG Mon: 4. Pain Intensity: 5 WITH MOVEMENT 5. Fall Risk: Dizziness: N Needs help standing or walking: N Fallen in the last 3 months: N Fall risk comments: 6. Patient on Blood Thinner: None 7. History of Hypertension: Y 8. Opioid Therapy greater than 6 weeks: N Opiate Contract Signed: 08/22/15 9. Risk Assessment Tool Provided: 1-low 10. Functional Assessment Tool: 11. Recreational Drug Use: Never Drug Type: Tobacco Use: Never Smoker Tobacco Type: Amount or Packs/day: How Many Years: Alcohol Use: No Frequency: Quant:
--- NOTE | 2019-02-28 10:06 | HPC ---
[facility] [address] [place] [address] PAIN MANAGEMENT CONSULTATION Name: OLEKSANDR HERNANDEZ Room #: REG [facility].#: [id number] Admission: 02/15/19 Attend Phys: Umberto Lopez DO Discharge: Date of : 47 Report #: [id number] THIS REPORT FOR: //name// CC: Shae Lopez DATE OF SERVICE: 02/15/2019 REFERRING PHYSICIAN: Shae Ramsey M.D. CHIEF COMPLAINT: Bilateral greater trochanteric bursitis. HISTORY OF PRESENT ILLNESS: As you know, the patient is a pleasant 74-year-old female returning in followup visit with bilateral greater trochanteric bursitis. She indicates pain today at level of 5/10 with activity and 6/10 with lying on either the left or right side. She indicates no new injury or trauma that may have led to symptom recurrence. She returns today in followup visit requesting bilateral intrabursal injections to be provided today to address ongoing pain. Her previous injections provided up to 70% improvement in overall pain lasting until just recently where she has had a slow and progressive return of symptoms. She describes the pain as aching, tender and constant, exacerbated with movement, improves with medications, Aleve and rest. ALLERGIES: PENICILLIN. CURRENT MEDICATIONS: Nabumetone, bupropion, vitamin D3, iron, Zyrtec, Synthroid, potassium, Protonix, probiotics, Lipitor, multivitamin, chromium and omega-3 fish oil. SOCIAL HISTORY: The patient denies tobacco, alcohol, IV or illicit drug use. She is unaccompanied today. IMAGING: No new imaging available. PQRS: The patient has known arthritic changes of the lumbar spine, bilateral hips and knees. No rheumatoid arthritis. Pain intensity today is rated around 5/10 with movement, 6/10 with lying on the areas. She is not a fall risk, has not had a fall in last 3 months. She is not on blood thinners, but she is treated for hypertension. She is not on chronic opioids, but does have a low opioid addiction potential. Pain impact score 17/70 indicating mild interference of daily activities secondary to pain. PHYSICAL EXAMINATION: VITAL SIGNS: Blood pressure 129/80, pulse 72, respiratory rate 14 and unlabored. The patient is 99% on room air. Height 5 feet tall, weight 146.[address] [address] PAIN MANAGEMENT CONSULTATION Name: OLEKSANDR HERNANDEZ Room #: REG [facility].#: [id number] Admission: 02/15/19 Attend Phys: Umberto Lopez DO Discharge: Date of : 47 Report #: [id number] pounds, BMI calculated 28.6. GENERAL: Well-developed, well-nourished, well-hydrated 74-year-old female appearing stated age, pain is rated today 5/10. HEENT: Normocephalic, atraumatic. Pupils equal, round, reactive to light. EXTREMITIES: Show no clubbing, no cyanosis, no edema. MUSCULOSKELETAL: The patient has palpatory tenderness over the bilateral greater trochanters, left greater than right. Ted's test is essentially negative. There does not appear to be any radicular component. Seated straight leg raising and supine straight leg raising negative. Modified Gaenslen's positive for some axial low back pain. ASSESSMENT: 1. Bilateral greater trochanteric bursitis. 2. Bilateral hip pain. 3. Chronic low back pain. 4. Chronic intractable pain. PLAN: 1. The patient returns today in followup visit with recurrence of her bilateral greater trochanteric bursitis, left greater than right. The patient is requesting we will perform bilateral intrabursal injections of the greater trochanters. The patient and I discussed the treatment options were available including physical therapy, medication management both topical and oral, we discussed the intraarticular bursal injections, which have been extremely beneficial for the patient in the past, also surgical options. After reviewing the risks and benefits of all proposed treatment options, the patient chose to undergo the intrabursal injections under fluoroscopic guidance. The patient has been advised risks and benefits of bilateral intrabursal injections of the greater trochanter. These risks include but are not necessarily limited to bleeding, bruising, infection, worsening pain, no relief of pain, also risk of temporary or permanent muscle weakness, temporary or permanent nerve damage, possible paralysis and . The patient states understood and wished to proceed. PROCEDURE NOTE DESCRIPTION OF PROCEDURE: Bilateral greater trochanteric bursa injections under fluoroscopic guidance. After obtaining written consent, the patient was taken back to fluoroscopy suite, placed in the left lateral decubitus position. The patient was lying on the left side with the lower hip and knee flexed and the upper hip and knee extended. The trochanteric bursa on the affected side was then identified by palpation. Skin overlying the target site of injection was then prepped and draped in aseptic fashion using chlorhexidine. The skin and subcutaneous tissue [address] [address] PAIN MANAGEMENT CONSULTATION Name: OLEKSANDR HERNANDEZ Room #: REG [facility]#: [id number] Admission: 02/15/19 Attend Phys: Umberto Lopez DO Discharge: Date of : 47 Report #: [id number] overlying target site injection anesthetized with 2 mL of 1% lidocaine. A 22-gauge 3-1/2 inch spinal needle was then inserted under fluoroscopic guidance until the tip reached the greater trochanter on the right. Needle then retracted approximately 1 mm. After negative aspiration for heme, 3 mL of a solution containing 1 mL 40 mg per mL, 40 mg total triamcinolone along with 2 mL of bupivacaine 0.5% injected slowly. Needle retracted skilled nursing, flushed with 1 mL of 1% lidocaine and removed. Sterile bandage placed over injection site. Attention was then directed to the left greater trochanteric bursa. The patient was placed in the right position in a right lateral decubitus position with the lower hip and knee flexed and the upper hip and knee extended. The trochanteric bursa on the left side was then identified by palpation. Skin overlying the target site of injection was then prepped and draped in aseptic fashion using chlorhexidine. A 27-gauge 1-1/4 inch needle was then used to anesthetize skin and subcutaneous tissue with 2 mL of 1% lidocaine. A 22-gauge 3-1/2 inch spinal needle was then advanced under fluoroscopic guidance towards the left greater trochanter. Needle was then advanced until reaching the greater trochanter and then retracted approximately 1 mm. After negative aspiration for heme, 3 mL of a solution containing 1 mL 40 mg per mL, 40 mg total triamcinolone along with 2 mL bupivacaine 0.5% injected slowly. Needle retracted skilled nursing, flushed with 1 mL of 1% lidocaine and then removed. Sterile bandage placed over injection site. There were no new motor deficits present in the lower extremities following procedure. The patient tolerated procedure well, carefully escorted to recovery room in stable condition. No apparent complications. After meeting discharge criteria, the patient discharged home. <ELECTRONICALLY SIGNED> By: Umberto Lopez DO 02/28/19 1006 [id number] Umberto Lopez DO /nt
== END | disposition home or self-care (01) ==
LOC: PAIN 12:51
DX: M70.61 Trochanteric bursitis, right hip (principal); M70.62 Trochanteric bursitis, left hip; M25.551 Pain in right hip; M25.552 Pain in left hip; M54.5 Low back pain; G89.29 Other chronic pain; M19.90 Unspecified osteoarthritis, unspecified site; Z98.890 Other specified postprocedural states; Z88.0 Allergy status to penicillin; Z79.899 Other long term (current) drug therapy; Z87.19 Personal history of other diseases of the digestive system

== ENCOUNTER → 2019-03-29 | Outpatient (CLI) | payer OTHER ==
[~2019-03-29] VITALS: Ht 152.4 cm; Wt 66.7 kg
[2019-03-29 12:34] VITALS: BP 106/70
--- NOTE | 2019-03-29 12:43 | NUR ---
Pain Clinic Assessment: 1. History of Osteoarthritis: SPINAL History of Rheumatoid Arthritis: Not Applicable 2. Height: 5 ft. 0 in. 152.4 cm. Weight: 147.0 lb. oz. 66.679 kg. Patient's BMI: 28.7 3. Vital Signs: BP: 106/70 Pulse: 83 Resp: 14 Temp: 02 Sat: 98 ECG Mon: 4. Pain Intensity: 1 AT REST. 9 WITH MOVEMEN 5. Fall Risk: Dizziness: N Needs help standing or walking: N Fallen in the last 3 months: N Fall risk comments: 6. Patient on Blood Thinner: None 7. History of Hypertension: Y 8. Opioid Therapy greater than 6 weeks: N Opiate Contract Signed: 08/22/15 9. Risk Assessment Tool Provided: 1-low 10. Functional Assessment Tool: 11. Recreational Drug Use: Never Drug Type: Tobacco Use: Never Smoker Tobacco Type: Amount or Packs/day: How Many Years: Alcohol Use: No Frequency: Quant:
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
== END ==
LOC: PAIN 06:57
DX: M47.27 Other spondylosis with radiculopathy, lumbosacral region (principal); M12.88 Other specific arthropathies, not elsewhere classified, other specified site; M79.18 Myalgia, other site; M54.5 Low back pain; G89.4 Chronic pain syndrome

== ENCOUNTER → 2019-07-12 | Outpatient (CLI) | payer OTHER ==
[~2019-07-12] VITALS: Ht 152.4 cm; Wt 72.3 kg
[2019-07-12 13:27] VITALS: BP 126/72
--- NOTE | 2019-07-12 13:49 | NUR ---
Pain Clinic Assessment: 1. History of Osteoarthritis: SPINAL History of Rheumatoid Arthritis: Not Applicable 2. Height: 5 ft. 0 in. 152.4 cm. Weight: 159.4 lb. oz. 72.303 kg. Patient's BMI: 31.1 3. Vital Signs: BP: 126/72 Pulse: 85 Resp: 16 Temp: 02 Sat: 100 ECG Mon: 4. Pain Intensity: 1-2; 8 WITH ACTIVITY 5. Fall Risk: Dizziness: N Needs help standing or walking: N Fallen in the last 3 months: N Fall risk comments: 6. Patient on Blood Thinner: None 7. History of Hypertension: Y 8. Opioid Therapy greater than 6 weeks: N Opiate Contract Signed: 08/22/15 9. Risk Assessment Tool Provided: 1-low 10. Functional Assessment Tool: 11. Recreational Drug Use: Never Drug Type: Tobacco Use: Never Smoker Tobacco Type: Amount or Packs/day: How Many Years: Alcohol Use: No Frequency: Quant:
--- NOTE | 2019-07-13 12:59 | HPC ---
[address] [address] PAIN MANAGEMENT CONSULTATION Name: OLEKSANDR HERNANDEZ Room #: [facility]#: [id number] Admission: 07/12/19 Attend Phys: Umberto Lopez DO Discharge: Date of : 47 Report #: [id number] THIS REPORT FOR: cc: Shae Ramsey MD, Cora A. MD Johnson, James E. DO ~ DATE OF SERVICE: 07/12/2019 REFERRING PHYSICIAN: Shae Ramsey MD CHIEF COMPLAINT: Low back pain, bilateral lower extremity pain. HISTORY OF PRESENT ILLNESS: As you know, the patient is a 74-year-old female with longstanding history of low back pain, bilateral lower extremity pain. She returns today in followup visit to undergo lumbar epidural injection under fluoroscopic guidance. She reports the previous lumbar epidural injection given nearly 1 year ago has provided excellent benefit. She is now placing her pain anywhere from 1-2/[address] up to 8/10 depending on activity. Previous epidural injection gave 75% improvement in overall pain. She returns today in followup visit requesting to undergo next in the series. She denies injury or trauma that may have led to symptom reoccurrence. She has had no changes in medical therapy that would preclude us from providing the injection today. ALLERGIES: PENICILLIN. CURRENT MEDICATIONS: Riboflavin 400 mg once a day, nabumetone 500 mg t.i.d., topiramate 50 mg once a day, bupropion SR 100 mg twice a day, magnesium oxide 400 mg twice a day, cholecalciferol 2000 units once a day, ferrous sulfate 325 mg per day, cetirizine 10 mg per day, levothyroxine 75 mcg per day, potassium supplement 25 mEq twice a day, pantoprazole 40 mg per day, lactobacillus 1 tab per day, atorvastatin 10 mg per day, multivitamin 1 tab per day, omega-3 fish oil 1 tab per day. SOCIAL HISTORY: The patient denies tobacco, alcohol, IV or illicit drug use. She is unaccompanied today. IMAGING: No new imaging available. PQRS: The patient has known arthritic changes of the lumbar spine, bilateral hips and knees. No rheumatoid arthritis is noted. She is placing pain intensity 1-2/[address] up to 8/10 depending on activity. She is not a fall risk, has not had a fall in last 3 months. She is not on blood thinners, but is treated for hypertension. She is not on chronic opioids and does have a low opioid addiction potential. Pain impact is 17/70 indicating mild interference of daily activities secondary to pain. [address] [address] PAIN MANAGEMENT CONSULTATION Name: OLEKSANDR HERNANDEZ [facility]: [facility] [id number] Admission: 07/12/19 Attend Phys: Umberto Lopez DO Discharge: Date of : 46 Report #: [id number] PHYSICAL EXAMINATION: VITAL SIGNS: Blood pressure 126/72, pulse 85, respiratory rate 16 and unlabored. The patient is 100% on room air. Height 5 feet tall, weight 159.4 pounds, BMI calculated 31.1. GENERAL: Well-developed, well-nourished, well-hydrated 74-year-old female appearing stated age, pain is rated today 2-8/10 depending on activity. HEENT: Normocephalic, atraumatic. Pupils equal, round, reactive to light. EXTREMITIES: Show no clubbing, no cyanosis, and no edema. MUSCULOSKELETAL: Lower extremity strength appears symmetrical 5/5, intact to light touch from L1 through S2 dermatomes. Seated straight leg raising negative. Supine straight leg raising positive on the right at approximately 60 degree angle. Ankle clonus negative. Babinski is negative. Gait appears mildly antalgic. Stance is slightly forward flexed lumbar spine. Well-healed surgical scars from the spinal cord stimulator noted. ASSESSMENT: 1. Symptomatic lumbar radiculopathy. 2. Lumbosacral spondylosis with radicular symptoms. 3. Facet arthropathy of the lumbar spine. 4. Myofascial pain. 5. Chronic intractable pain. PLAN: 1. The patient returns today in followup visit requesting to undergo lumbar epidural injection under fluoroscopic guidance. She has noted excellent benefit with previous epidural injection up to 75% improvement in overall pain. She returns today in followup visit with recurrence of lumbar radicular symptoms for which she is placing pain anywhere from 4-8/10 depending on activity. She returns requesting next in the series of epidural injections to build on success of previous intervention. She has been advised risks and benefits of procedure, states she understood and wished to proceed. 2. The patient and I did discuss the risks that she would have to accept given her age in a time of COVID pandemic and the use of steroid exposure. It has been shown in the literature that steroid exposure can potentially increase the risk of contraction of the COVID-19, it also has been shown to exacerbate symptoms if present. The patient states she understands the risk in regards to COVID-19 and wishes to proceed. 3. No medication changes made at today's visit. The patient will continue current medical therapy as prior prescribed. 4. We will see the patient back in followup visit on an as needed basis to address interventional treatments or medication management. We are hopeful the patient will see good and prolonged benefit with today's epidural injection. PROCEDURE NOTE DESCRIPTION OF PROCEDURE: L5-S1 interlaminar epidural steroid injection under [facility] [address] [place] [address] PAIN MANAGEMENT CONSULTATION Name: OLEKSANDR HERNANDEZ Marco Antonio Room #: [facility]#: [id number] Admission: 07/12/19 Attend Phys: Umberto Lopez DO Discharge: Date of : 46 Report #: [id number] fluoroscopic guidance. After obtaining written consent, the patient was taken back to fluoroscopy suite, placed in prone position with pillow under abdomen to decrease lumbar lordosis. Skin overlying lumbosacral area then prepped and draped in aseptic fashion. L5-S1 vertebral interspace identified by AP fluoroscopy. Skin and subcutaneous tissue overlying target site injection anesthetized with 3 mL of 1% lidocaine. A 20-gauge 3-1/2 inch Tuohy needle advanced under fluoroscopic guidance towards the epidural space using midline approach. Epidural space identified using loss of resistance to air technique. After negative aspiration for heme or cerebrospinal fluid, 1 mL of Omnipaque injected. Lumbar epidurogram confirmed using both AP and lateral fluoroscopy. After negative aspiration for heme or cerebrospinal fluid, 5 mL of solution containing 2 mL 40 mg per mL, 80 mg total triamcinolone along with 3 mL lidocaine 1% injected slowly. Needle then retracted approximately half way, flushed with 1 mL of 1% lidocaine and then removed. Sterile bandage placed over injection site. No new motor deficits present in the lower extremities following procedure. The patient tolerated procedure well, carefully escorted to recovery room in stable condition. No apparent complications. After meeting discharge criteria, the patient discharged home. <ELECTRONICALLY SIGNED> By: Umberto Lopez DO 07/13/19 1259 [id number] Umberto Lopez DO /nt
== END | disposition home or self-care (01) ==
LOC: PAIN 06:57
DX: M47.27 Other spondylosis with radiculopathy, lumbosacral region (principal); M47.26 Other spondylosis with radiculopathy, lumbar region; M79.18 Myalgia, other site; G89.29 Other chronic pain; I10 Essential (primary) hypertension; M19.90 Unspecified osteoarthritis, unspecified site; Z98.890 Other specified postprocedural states; Z79.899 Other long term (current) drug therapy; Z88.0 Allergy status to penicillin

== ENCOUNTER → 2020-01-11 | Outpatient (CLI) | payer OTHER ==
[~2020-01-11] VITALS: Ht 152.4 cm; Wt 73.4 kg
[~2020-01-11] MED LIST changes: +[UNRECOGNIZED DRUG - OTHER]
--- NOTE | ~2020-01-11 | HPC ---
[facility] [address] [place] [address] PAIN MANAGEMENT CONSULTATION Name: OLEKSANDR HERNANDEZ Room #: REG [facility]#: [id number] Admission: 01/11/20 Attend Phys: Umberto Lopez DO Discharge: Date of : 46 Report #: [id number] THIS REPORT FOR: cc: Shae Ramsey MD,Umberto Moran MD, DO ~ CC: Shae Lopez DATE OF SERVICE: 01/11/2020 REFERRING PHYSICIAN: Shae Ramsey MD CHIEF COMPLAINT: Low back pain, bilateral lower extremity pain with paresthesias. HISTORY OF PRESENT ILLNESS: As you know, the patient is a very pleasant 74-year-old female with longstanding history of low back pain, bilateral lower extremity pain with paresthesias due to progressively worsening spinal stenosis of lumbar spine. The patient has done very well with previous epidural injections, the most recent giving an improvement in symptoms of 90%, lasting for almost 5 months. Unfortunately, her symptoms have begun to return without inciting injury or trauma. She is now placing her pain score at approximately 5/10. She returns today in followup visit for the next in the series of lumbar epidural injections under fluoroscopic guidance to address lumbar radicular pain. ALLERGIES: PENICILLIN. CURRENT MEDICATIONS: Riboflavin, nabumetone, topiramate, bupropion, magnesium, cholecalciferol, ____, ferrous sulfate, cetirizine, levothyroxine, potassium, pantoprazole, lactobacillus, atorvastatin, multivitamin, and omega-3 fish oil. SOCIAL HISTORY: The patient denies tobacco, alcohol, IV or illicit drug use. She is unaccompanied at today's visit. IMAGING: No new imaging available. PQRS: The patient has known arthritic changes of the lumbar spine, bilateral hips and bilateral knees. Denies rheumatoid arthritis. She is placing pain today at 5/10. She is not a fall risk, has not had a fall in last 3 months. She is not on blood thinners, but is treated for hypertension. She is not on chronic opioids and based on our assessment tool has a low opioid addiction potential. She is placing current pain impact at 15/70, mild interference of [place] [address] PAIN MANAGEMENT CONSULTATION Name: OLEKSANDR HERNANDEZ Room #: REG [facility]#: [id number] Admission: 01/11/20 Attend Phys: Umberto Lopez DO Discharge: Date of : 47 Report #: [id number] PHYSICAL EXAMINATION: VITAL SIGNS: Blood pressure 109/61, pulse 73, respiratory rate 16 and unlabored. The patient is 97% on room air. Height 5 feet tall, weight 161.8 pounds, BMI calculated 31.6. GENERAL: Well-developed, well-nourished, well-hydrated 74-year-old female appearing stated age, pain is rated today at 5/10. HEENT: Normocephalic, atraumatic. Pupils equal, round and reactive. NEUROLOGIC: Speech fluent. The patient deemed a good historian. EXTREMITIES: Show no clubbing, no cyanosis. No appreciable edema. MUSCULOSKELETAL: Seated straight leg raising negative. Supine straight leg raising positive on the right. Ted's test negative. Gait is mildly antalgic favoring right lower extremity over left. Ankle clonus negative. Babinski is negative. ASSESSMENT: 1. Symptomatic lumbar radiculopathy. 2. Spinal stenosis of the lumbar spine. 3. Displacement of lumbar intervertebral disk with radiculopathy. 4. Lumbosacral spondylosis with radiculopathy. 5. Facet arthropathy of the lumbar spine. 6. Chronic intractable pain. PLAN: 1. The patient returns today in followup visit requesting to undergo lumbar epidural injection under fluoroscopic guidance. The patient has done very well with previous epidural injections, the most recent providing 90% improvement in overall pain lasting for almost 5 months. She has returned today in followup visit to undergo next in the series of epidural injections. She denies injury or trauma that may have led to symptom reoccurrence. She has been advised risks and benefits of the procedure, states understood and wished to proceed. 2. No medication changes made at today's visit. The patient will continue current medical therapy as prior prescribed. 3. We will see the patient back in followup visit on an as needed basis and for possible next in the series of lumbar epidural injections. PROCEDURE NOTE: DESCRIPTION OF PROCEDURE: L5-S1 interlaminar epidural steroid injection under fluoroscopic guidance. After obtaining written consent, the patient was taken back to fluoroscopy suite, placed in prone position with pillow under abdomen to decrease lumbar lordosis. Skin overlying lumbosacral area prepped and draped in aseptic fashion. The L5-S1 vertebral interspace identified by AP fluoroscopy. Skin and subcutaneous tissue overlying target site of injection then anesthetized with [address] [address] PAIN MANAGEMENT CONSULTATION Name: OLEKSANDR HERNANDEZ Room #: REG [facility]#: [id number] Admission: 01/11/20 Attend Phys: Umberto Lopez DO Discharge: Date of : 47 Report #: [id number] mL of 1% lidocaine. A 20-gauge 3-1/2 inch Tuohy needle advanced under fluoroscopic guidance towards the epidural space using a parasagittal approach. The epidural space identified using loss of resistance to air technique. After negative aspiration for heme or cerebrospinal fluid, 1 mL of Omnipaque injected. Lumbar epidurogram confirmed using both AP and lateral fluoroscopy. After negative aspiration for heme or cerebrospinal fluid, 5 mL of a solution containing 2 mL 40 mg per mL, 80 mg total triamcinolone along with 3 mL of lidocaine 1% injected slowly. Needle retracted residential, flushed with 1 mL of 1% lidocaine and then removed. Sterile bandage placed over injection site. No new motor deficits present in lower extremity following procedure. The patient tolerated procedure well, carefully escorted to recovery room in stable condition. No apparent complications. After meeting discharge criteria, the patient discharged home. By: [id number] Umberto Lopez DO /nt
[2020-01-11 14:15] VITALS: BP 109/61
--- NOTE | 2020-01-11 14:31 | NUR ---
Pain Clinic Assessment: 1. History of Osteoarthritis: SPINAL History of Rheumatoid Arthritis: DENIES 2. Height: 5 ft. 0 in. 152.4 cm. Weight: 161.8 lb. oz. 73.392 kg. Patient's BMI: 31.6 3. Vital Signs: BP: 109/61 Pulse: 73 Resp: 16 Temp: 02 Sat: 97 ECG Mon: 4. Pain Intensity: 5 5. Fall Risk: Dizziness: N Needs help standing or walking: N Fallen in the last 3 months: N Fall risk comments: 6. Patient on Blood Thinner: None 7. History of Hypertension: Y 8. Opioid Therapy greater than 6 weeks: N Opiate Contract Signed: 08/22/15 9. Risk Assessment Tool Provided: 1-low 10. Functional Assessment Tool: 11. Recreational Drug Use: Never Drug Type: Tobacco Use: Never Smoker Tobacco Type: Amount or Packs/day: How Many Years: Alcohol Use: No Frequency: Quant:
== END | disposition home or self-care (01) ==
LOC: PAIN 06:56
PROVIDERS: ATTEND Anesthesiology Pain Medicine
DX: M51.16 Intervertebral disc disorders with radiculopathy, lumbar region (principal); M48.02 Spinal stenosis, cervical region; M47.26 Other spondylosis with radiculopathy, lumbar region; M47.27 Other spondylosis with radiculopathy, lumbosacral region; G89.29 Other chronic pain; I10 Essential (primary) hypertension; M19.90 Unspecified osteoarthritis, unspecified site; Z98.890 Other specified postprocedural states; Z79.899 Other long term (current) drug therapy; Z88.0 Allergy status to penicillin

== ENCOUNTER → 2020-06-19 | Outpatient (CLI) | payer OTHER ==
[~2020-06-19] VITALS: Ht 152.4 cm; Wt 71.9 kg
[2020-06-19 08:16] VITALS: BP 133/88
--- NOTE | 2020-06-19 08:26 | NUR ---
Pain Clinic Assessment: 1. History of Osteoarthritis: SPINAL History of Rheumatoid Arthritis: DENIES 2. Height: 5 ft. 0 in. 152.4 cm. Weight: 158.6 lb. oz. 71.940 kg. Patient's BMI: 31.0 3. Vital Signs: BP: 133/88 Pulse: 66 Resp: 14 Temp: 02 Sat: 100 ECG Mon: 4. Pain Intensity: 1 5. Fall Risk: Dizziness: N Needs help standing or walking: N Fallen in the last 3 months: N Fall risk comments: 6. Patient on Blood Thinner: None 7. History of Hypertension: Y 8. Opioid Therapy greater than 6 weeks: N Opiate Contract Signed: 08/22/15 9. Risk Assessment Tool Provided: 1-low 10. Functional Assessment Tool: 11. Recreational Drug Use: Never Drug Type: Tobacco Use: Never Smoker Tobacco Type: Amount or Packs/day: How Many Years: Alcohol Use: No Frequency: Quant:
--- NOTE | 2020-06-19 12:24 | HPC ---
[facility] [place] [address] PAIN MANAGEMENT CONSULTATION Name: OLEKSANDR HERNANDEZ Room #: REG [facility]#: [id number] Admission: 06/19/20 Attend Phys: Umberto Lopez DO Discharge: Date of : 46 Report #: [id number] THIS REPORT FOR: cc: Shae Ramsey MD, Cora A. MD Johnson, James E. DO ~ DATE OF SERVICE: 06/19/2020 REFERRING PHYSICIAN: Shae Ramsey MD CHIEF COMPLAINT: Low back pain, bilateral lower extremity pain with paresthesias. HISTORY OF PRESENT ILLNESS: As you know, the patient is a very pleasant 75-year-old female returning in followup visit to undergo lumbar epidural injection under fluoroscopic guidance. The patient reports good efficacy with previous lumbar epidural injections up to 70-80% improvement in overall pain. Unfortunately, her symptoms have reoccurred. The last injection actually gave the patient 90% improvement in overall pain lasting for 3 months. She returns today in followup visit requesting next in the series of epidural injections to build on success of previous intervention. The patient has suffered no new injury or trauma. ALLERGIES: PENICILLIN. CURRENT MEDICATIONS: See chart. SOCIAL HISTORY: The patient denies tobacco, alcohol, IV or illicit drug use. She is unaccompanied today. IMAGING: No new imaging available. PQRS: The patient has known arthritic changes of the lumbar spine, bilateral hips and knees. No rheumatoid arthritis. Placing current pain score 1/10. She is not a fall risk, has not had a fall in last 3 months. She is not on blood thinners, but is treated for hypertension. She is not on chronic opioids, has a low opioid addiction potential. Pain impact is 15/70, mild interference of daily activities secondary to pain. PHYSICAL EXAMINATION: VITAL SIGNS: Blood pressure 133/88, pulse is 66, respiratory rate 14 and unlabored. The patient is 100% on room air. Height 5 feet tall, weight 158.6 pounds, BMI calculated 31.0. GENERAL: Well-developed, well-nourished, well-hydrated 75-year-old female appearing stated age, pain is rated today 1/10. HEENT: Normocephalic and atraumatic. Pupils are equal, round, and responsive. [address] [address] PAIN MANAGEMENT CONSULTATION Name: OLEKSANDR HERNANDEZ Room #: [facility]#: [id number] Admission: 06/19/20 Attend Phys: Umberto Lopez DO Discharge: Date of : 46 Report #: [id number] The patient is wearing a mask in compliance with COVID-19 regulations. EXTREMITIES: Show no clubbing, no cyanosis, no appreciable edema. MUSCULOSKELETAL: Gait remains antalgic appears to be favoring right lower extremity. Muscle bulk and tone equal and symmetrical in comparing lower extremities. Ankle clonus negative. Babinski is negative. Seated straight leg raising negative. Supine straight leg raising positive on the right, approximately 60-degree angle. ASSESSMENT: 1. Symptomatic lumbar radiculopathy. 2. Spinal stenosis of the lumbar spine. 3. Displacement of lumbar intervertebral disk with radiculopathy. 4. Lumbosacral spondylosis with radiculopathy. 5. Facet arthropathy of the lumbar spine. 6. Chronic intractable pain. PLAN: 1. The patient returns today in followup visit to undergo lumbar epidural injection under fluoroscopic guidance. She reports about a 90% improvement in overall pain with the epidural injection provided at last visit, lasting for almost 3 months. Unfortunately, her symptoms have begun to return. She is now placing pain score 1/10. She returns today in followup visit for the next in the series of lumbar epidural injections. We are hopeful the patient will see once again good and prolonged benefit with today's procedure. She has been advised risks and benefits of this procedure, states understood and wished to proceed. 2. No medication changes made at today's visit. The patient will continue current medical therapy as prior prescribed. 3. We will see the patient back in followup visit on an as needed basis for the next in the series of lumbar epidural injections. PROCEDURE NOTE DESCRIPTION OF PROCEDURE: L5-S1 interlaminar epidural steroid injection under fluoroscopic guidance. After obtaining written consent, the patient was taken back to fluoroscopy suite, placed in prone position with pillow under abdomen to decrease lumbar lordosis. Skin overlying lumbosacral area prepped and draped in aseptic fashion. The L5-S1 vertebral interspace identified by AP fluoroscopy. Skin and subcutaneous tissue overlying target site injection anesthetized with 3 mL of 1% lidocaine. A 20-gauge 3-1/2 inch Tuohy needle advanced under fluoroscopic guidance towards the epidural space using parasagittal approach. Epidural space identified using loss of resistance to air technique. After negative aspiration for heme or [facility] [address] [place] [address] PAIN MANAGEMENT CONSULTATION Name: OLEKSANDR HERNANDEZ Room #: [facility] MIRANDA JaramilloR.#: [id number] Admission: 06/19/20 Attend Phys: Umberto Lopez DO Discharge: Date of : 46 Report #: [id number] cerebrospinal fluid, 1 mL of Omnipaque injected. Lumbar epidurogram was confirmed using both AP and oblique fluoroscopy. After negative aspiration for heme or cerebrospinal fluid, 5 mL of a solution containing 2 mL 40 mg per mL, 80 mg total triamcinolone along with 3 mL of lidocaine 1% injected slowly. Needle retracted approximately half way, flushed with 1 mL of 1% lidocaine and removed. Sterile bandage placed over injection site. No new motor deficits in the lower extremities following procedure. The patient tolerated procedure well, carefully escorted to recovery room in stable condition. No apparent complications. After meeting discharge criteria, the patient discharged home. <ELECTRONICALLY SIGNED> By: Umberto Lopez DO 06/19/20 1224 [id number] Umberto Lopez DO /nt
== END | disposition home or self-care (01) ==
LOC: PAIN 05-02 10:45
PROVIDERS: ATTEND Anesthesiology Pain Medicine
DX: M51.16 Intervertebral disc disorders with radiculopathy, lumbar region (principal); M48.061 Spinal stenosis, lumbar region without neurogenic claudication; M47.27 Other spondylosis with radiculopathy, lumbosacral region; M47.26 Other spondylosis with radiculopathy, lumbar region; G89.29 Other chronic pain; I10 Essential (primary) hypertension; M19.90 Unspecified osteoarthritis, unspecified site; Z98.890 Other specified postprocedural states; Z79.899 Other long term (current) drug therapy; Z88.0 Allergy status to penicillin

== ENCOUNTER → 2020-08-14 | Outpatient (CLI) | payer OTHER ==
[~2020-08-14] VITALS: Ht 152.4 cm; Wt 72.1 kg
[~2020-08-14] MED LIST changes: +NABUMETONE 500500 M2 PO; +NUTRAFOL PO
[2020-08-14 12:39] VITALS: BP 102/71
--- NOTE | 2020-08-14 12:57 | NUR ---
Pain Clinic Assessment: 1. History of Osteoarthritis: SPINAL History of Rheumatoid Arthritis: DENIES 2. Height: 5 ft. 0 in. 152.4 cm. Weight: 159.0 lb. oz. 72.122 kg. Patient's BMI: 31.1 3. Vital Signs: BP: 102/71 Pulse: 86 Resp: 16 Temp: 02 Sat: 97 ECG Mon: 4. Pain Intensity: 7-8 W/ACTIVITY 5. Fall Risk: Dizziness: N Needs help standing or walking: N Fallen in the last 3 months: N Fall risk comments: 6. Patient on Blood Thinner: None 7. History of Hypertension: Y 8. Opioid Therapy greater than 6 weeks: N Opiate Contract Signed: 08/22/15 9. Risk Assessment Tool Provided: 1-low 10. Functional Assessment Tool: 11. Recreational Drug Use: Never Drug Type: Tobacco Use: Never Smoker Tobacco Type: Amount or Packs/day: How Many Years: Alcohol Use: No Frequency: Quant:
--- NOTE | 2020-08-15 08:54 | HPC ---
[facility] [place] [place] [address] PAIN MANAGEMENT CONSULTATION Name: OLEKSANDR HERNANDEZ Room #: REG [facility].#: [id number] Admission: 08/14/20 Attend Phys: Radha Camilo Discharge: Date of : 46 Report #: [id number] THIS REPORT FOR: cc: Shae Ramsey MD, Cora A. MD Hocker, Amanda CNS ~ DOC #: [id number] cc: Shae Ramsey MD, DO Radha Castellon, SUSANNAH DATE OF SERVICE: 08/14/2020 CHIEF COMPLAINT: Low back pain, bilateral lower extremity pain and paresthesias. HISTORY OF PRESENT ILLNESS: As you know, this is a pleasant 75-year-old who continues to have ongoing low back pain and lumbar radiculopathy. Today, the patient is reporting a pain score 7-8 with activity, though it does decrease significantly when she is resting. Her pain is worse in her lower back and left leg. She does utilize her spinal cord stimulator at all times and finds this device very beneficial in helping relieve her pain as well as her nabumetone. The patient states that she has been busy gardening and active with housework and that has increased her pain. She does report that she takes an occasional Aleve and finds that beneficial as well. ALLERGIES: PENICILLIN. CURRENT LIST OF MEDICATIONS: acyclovir, brain and cell vitamin, riboflavin, nabumetone 500 t.i.d., bupropion, Topamax, magnesium, vitamin D, iron, Zyrtec, Synthroid, potassium, Protonix, probiotics, Lipitor, multivitamin, chromium and omega 3. PQRS: 1. She has a history of osteoarthritis in her spine. Denies any rheumatoid arthritis. Height is 5 feet, weight is 159. BMI is 31. 2. Vital signs, blood pressure is 102/71, pulse is 86, respirations 16, oxygen sat is 97%. 3. Pain score 7-8 with activity. 4. Fall risk, denies dizziness, does not need help walking or standing, has not fallen in the last 3 months. The patient is not on any blood thinners, but does take medicine for hypertension. 5. Opioid therapy. She denies. Her risk assessment is low. Functional assessment is . 6. Recreational drug use, she denies. She is not a smoker, does not drink alcohol. PHYSICAL EXAMINATION: [facility] [address] [facility] [address] PAIN MANAGEMENT CONSULTATION Name: OLEKSANDR HERNANDEZ Room #: REG [facility]#: [id number] Admission: 08/14/20 Attend Phys: Radha Camilo Discharge: Date of : 46 Report #: [id number] GENERAL: This is a well-developed, well-nourished, well-hydrated 75-year-old female who appears her stated age, rating her pain score today at 7-8 with activity. HEENT: Normocephalic, atraumatic. Pupils equal, round and reactive to light. She is wearing a mask. MUSCULOSKELETAL: She is without clubbing, cyanosis or edema. MUSCULOSKELETAL: She has tenderness in the lumbosacral region that does radiate into her left leg. Seated straight leg raising is negative. She has an antalgic gait. Lower extremity strength is symmetrical at 5/5. IMPRESSION: 1. Symptomatic lumbar radiculopathy. 2. Spinal stenosis of lumbar spine. 3. Displacement of lumbar intervertebral disk with radiculopathy. 4. Lumbar sacral spondylosis with radiculopathy. 5. Spinal cord stimulator with good efficacy. 6. Facet arthroscopy of the lumbar spine. 7. Chronic intractable pain. PLAN: We discussed treatment options with the patient today. The patient states that she had at least 75% improvement from her previous lumbar epidural steroid injection from Dr. Lopez. Typically last at least two to three months and she still feels like she is having good relief when she is not overly active. 1. The patient states she feels the nabumetone 500 mg is beneficial in helping relieve her pain and does not suffer any GI complications from this medication. I did discourage her from taking any additional Aleve explaining to her that that is a nonsteroidal anti-inflammatory as nabumetone is. We did discuss occasionally using Voltaren gel, but does not have the systemic effects that nabumetone has is a anti-inflammatory on her more painful days. Also, encouraging her to rest and space her activities to allow her pain to subside. 2. The patient does find the spinal cord stimulator are very beneficial in controlling her pain and does utilize this all times of the day. Script sent electronically today for her nabumetone 500 mg t.i.d., #90 with 5 additional refills, the patient will call as needed for another epidural steroid injection. Time spent with the patient in consultation, reviewing recent studies and clinical notes and physician reports, physical examination and correlation of findings and medical documentation to determine possible treatments is 11 minutes. Time spent and preparation for appointment reviewing prescription monitoring system, reviewing previous records and proposed treatment options, reviewing current medications is 5 minutes. Time spent preparing and sending electronic prescriptions with collaborating [facility] [address] [place] [address] PAIN MANAGEMENT CONSULTATION Name: OLEKSANDR HERNANDEZ Room #: [facility]#: [id number] Admission: 08/14/20 Attend Phys: Radha Camilo Discharge: Date of : 46 Report #: [id number] physician, Dr. Umberto Lopez, documentation of visit and plan of treatment is 5 minutes. Total time spent 21 minutes. SUSANNAH Vides/JULIETA/LIZA <ELECTRONICALLY SIGNED> By: Radha Camilo 08/15/20 0854 1238 2209 Radha Camilo /nt
== END ==
LOC: PAIN 08:28
PROVIDERS: ATTEND Clinical Nurse Specialist Adult Health
DX: M51.16 Intervertebral disc disorders with radiculopathy, lumbar region (principal); G89.4 Chronic pain syndrome; M48.061 Spinal stenosis, lumbar region without neurogenic claudication; Z79.891 Long term (current) use of opiate analgesic; Z79.899 Other long term (current) drug therapy; Z88.0 Allergy status to penicillin

== ENCOUNTER → 2021-01-15 | Outpatient (CLI) | payer OTHER ==
[~2021-01-15] VITALS: Ht 152.4 cm; Wt 75.3 kg
[~2021-01-15] MED LIST changes: +ALL DAY ALLERGY10 M3 PO; +nutrafol
[2021-01-15 10:05] VITALS: BP 120/79
--- NOTE | 2021-01-15 10:19 | NUR ---
Pain Clinic Assessment: 1. History of Osteoarthritis: SPINAL History of Rheumatoid Arthritis: DENIES 2. Height: 5 ft. 0 in. 152.4 cm. Weight: 166.0 lb. oz. 75.297 kg. Patient's BMI: 32.4 3. Vital Signs: BP: 120/79 Pulse: 73 Resp: 16 Temp: 02 Sat: 98 ECG Mon: 4. Pain Intensity: 7-8 W/ACTIVITY 5. Fall Risk: Dizziness: N Needs help standing or walking: N Fallen in the last 3 months: N Fall risk comments: 6. Patient on Blood Thinner: None 7. History of Hypertension: Y 8. Opioid Therapy greater than 6 weeks: N Opiate Contract Signed: 08/22/15 9. Risk Assessment Tool Provided: 1-low 10. Functional Assessment Tool: 11. Recreational Drug Use: Never Drug Type: Tobacco Use: Never Smoker Tobacco Type: Amount or Packs/day: How Many Years: Alcohol Use: No Frequency: Quant:
--- NOTE | 2021-01-16 11:23 | HPC ---
[address] [address] PAIN MANAGEMENT CONSULTATION Name: OLEKSANDR HERNANDEZ Room #: REG [facility]#: [id number] Admission: 01/15/21 Attend Phys: Umberto oLpez DO Discharge: Date of : 46 Report #: [id number] THIS REPORT FOR: cc: Shae Ramsey MD, Cora A. MD Johnson, James E. DO ~ cc: Shae Ramsey MD DATE OF SERVICE: 01/15/2021 CHIEF COMPLAINT: Bilateral greater trochanteric bursa pain. HISTORY OF PRESENT ILLNESS: As you know, the patient is a very pleasant 75-year-old female returning in followup visit, requesting bilateral greater trochanteric bursa injections under fluoroscopic guidance. The patient has done very well with previous bursa injections with prolonged benefit. The patient reports previous injection and gave greater than 80% improvement in overall pain until just recently where she has had a slow and progressive return of symptoms. She is denying any injury or trauma. She has done very well with various injections to address either lumbar radiculopathy or her greater trochanter bursitis. Her greatest pain generator today is the greater trochanters bilaterally. She returns to undergo the procedure. She had no changes in medication management that preclude the patient from undergoing the injections today. She is placing pain score today at 7-8/10. ALLERGIES: PENICILLIN. CURRENT MEDICATIONS: See chart. SOCIAL HISTORY: The patient denies tobacco, alcohol or IV or illicit drug use. She is retired, retired years ago, unaccompanied today. IMAGING: No new imaging available. PQRS: The patient has known arthritic changes of the lumbar spine, bilateral hips, and knees. No rheumatoid arthritis. She is placing current pain intensity anywhere from 7-8/10. She is not a fall risk, has not had a fall in last 3 months, not on blood thinners, but is treated for hypertension. She is on no opioid medications. Low opioid addiction potential based on assessment tool. Pain impact is 15/70, mild interference of daily activities secondary to pain. PHYSICAL EXAMINATION: VITAL SIGNS: Blood pressure 120/79, pulse 73, respiratory rate 16 and unlabored. The patient is 98% on room air. Height 5 feet tall, weight 166 pounds, BMI calculated 32.4. GENERAL: Well-developed, well-nourished, well-hydrated 75-[place] [address] PAIN MANAGEMENT CONSULTATION Name: OLEKSANDR HERNANDEZ Room #: [facility]#: [id number] Admission: 01/15/21 Attend Phys: Umberto Lopez DO Discharge: Date of : 46 Report #: [id number] appearing stated age, pain is rated today 7-8/10. HEENT: Normocephalic, atraumatic. Pupils equal, round and responsive. EXTREMITIES: Show no clubbing, no cyanosis, no edema. MUSCULOSKELETAL: Tenderness to palpation directly over the greater trochanteric bursas bilaterally. There is no intrinsic hip pathology noted on Ted's exam. ASSESSMENT: 1. Greater trochanteric bursitis. 2. Chronic pain. PLAN: 1. The patient returns today in followup visit with greater trochanteric bursa discomfort. She states that the symptoms have progressed over the past couple of weeks without inciting injury or trauma. She has returned today in followup visit, requesting a bilateral greater trochanteric bursa injections under fluoroscopic guidance to address greater trochanteric bursitis. The patient has been advised risks and benefits of the procedure, states she understood and wished to proceed. 2. No medication changes made at today's visit. The patient will continue current medical therapy as prior prescribed. 3. We plan to see the patient back in followup visit for further treatment as necessary. We are hopeful that the patient will see good and prolonged benefit with today's greater trochanteric bursa injections. PROCEDURE NOTE DESCRIPTION OF PROCEDURE: Bilateral greater trochanteric bursa injections under fluoroscopic guidance. After obtaining written consent, the patient was placed in a right lateral decubitus position. The patient was lying on the unaffected side with the lower hip and knee, flexed in the upper hip and knee extended. The trochanteric bursa on the affected side was identified by palpation. The area overlying the injection was then prepped and draped in aseptic fashion using chlorhexidine. A 27-gauge 1-1/4-inch needle was then used to anesthetize skin and subcutaneous tissue with 2 mL of 1% lidocaine. A 22-gauge 3-1/2 inch spinal needle was advanced towards the tip of the greater trochanter. Needle was advanced until reaching the greater trochanter, then retracted approximately 1 mm. After negative aspiration for heme, 0.5 mL of Omnipaque injected. An excellent bursa spread was noted. After negative aspiration for heme, 3 mL of solution containing 1 mL 40 mg per mL, 40 mg total triamcinolone and 2 mL of bupivacaine 0.5% was injected slowly. Needle was retracted long-term flushed with 1 mL of 1% lidocaine and then removed. Sterile bandage placed over injection site. [address] [address] PAIN MANAGEMENT CONSULTATION Name: OLEKSANDR HERNANDEZ Room #: REG [facility]#: [id number] Admission: 01/15/21 Attend Phys: Umberto Lopez DO Discharge: Date of : 46 Report #: [id number] The patient was then placed in a left lateral decubitus position. The patient was lying on the unaffected side with the lower hip and knee flexed and the upper hip and knee extended. The trochanteric bursa was palpated for identification. Skin overlying the target site of injection was then anesthetized with 2 mL of 1% lidocaine, utilizing a 27-gauge 1-1/4-inch needle. A 22-gauge 3-1/2 inch spinal needle was then advanced under fluoroscopic guidance towards the greater trochanter. Needle was advanced until reaching the greater trochanter, then retracted approximately 1 mm. After negative aspiration for heme, 0.5 mL of Omnipaque injected. A bursal injection was noted with the contrast agent. After negative aspiration for heme, 3 mL of a solution containing 1 mL 40 mg per mL, 40 mg total triamcinolone, 2 mL of bupivacaine 0.5% injected slowly. Needle retracted long-term flushed with 1 mL of 1% lidocaine, then removed. Sterile bandage placed over injection site. There were no new motor deficits present in the lower extremity following procedure. The patient tolerated the procedure well, carefully escorted to recovery room in stable condition. No apparent complications. After meeting our discharge criteria, the patient was then discharged home. <ELECTRONICALLY SIGNED> By: Umberto Lopez DO 01/16/21 1123 1454 17 Umberto Lopez DO /nikky
== END | disposition home or self-care (01) ==
LOC: PAIN 09:42
PROVIDERS: ATTEND Anesthesiology Pain Medicine
DX: M70.62 Trochanteric bursitis, left hip (principal); M70.61 Trochanteric bursitis, right hip; G89.29 Other chronic pain; I10 Essential (primary) hypertension; M19.90 Unspecified osteoarthritis, unspecified site; Z98.890 Other specified postprocedural states; Z79.899 Other long term (current) drug therapy; Z88.8 Allergy status to other drugs, medicaments and biological substances; Z88.0 Allergy status to penicillin